=== PATIENT | female | born 1950 | race Caucasian/White ===

== ENCOUNTER 2022-05-01 23:16 | Emergency (ER) | payer MEDICARE, SELFPAY ==
--- NOTE | ~2022-05-01 | CT_ITS ---
EXAMINATION: CTA chest PE protocol DATE: 05/02/2022 05:57 INDICATION: Shortness of breath, elevated d-dimer TECHNIQUE: Computed tomography angiography (CTA) of the chest was performed with 200 CC Omnipaque 350 intravenous contrast timed to evaluate the pulmonary arteries. Coronal maximum intensity projection 3D-reconstructions were created by the technologist. Automated exposure control and iterative reconst ruction technique were employed. Exam dose: 446.48 mGy-cm total exam DLP. COMPARISON: None. FINDINGS: There is diagnostic contrast enhancement of the pulmonary arteries on the second set of shannon ges following repeat injection of contrast material. There is no CT evidence of pulmonary embolism. No thoracic aortic aneurysm or dissection. Normal heart size. No pericardial or pleural effusion. No hilar or mediastinal mass lesion or lymphadenopathy. Laparoscopic gastric band is noted. Status post lower anterior cervical spine surgical fusion. No suspicious osteolytic or osteoblastic lesions. IMPRESSION: No evidence of pulmonary embolism Reviewed, dictated and finalized at [facility]. Reviewed, dictated and finalized at [facility].
--- NOTE | ~2022-05-01 | XR_ITS ---
XR chest 2V DATE: 05/02/2022 01:24 INDICATION: Shortness of breath and cough for 3 days TECHNIQUE: PA and lateral views COMPARISON: None FINDINGS: Normal heart size. No hilar or mediastinal enlargement. No pulmonary infiltrate or consolid ation, pleural effusion or pulmonary vascular congestion or pneumothorax. Laparoscopic gastric band is noted. Status post lower anterior cervical spine surgical fusion. IMPRESSION: No active cardiopulmonary disease Reviewed, dictated and finalized at [facility].
--- NOTE | 2022-05-01 23:19 | ECG_ITS ---
Measurements Intervals [place] Rate: 90 P: 32 [place]: 132 QRS: 22 QRSD: 86 T: 29 QT: 372 QTc: 455 Interpretive Statements SINUS RHYTHM LOW QRS VOLTAGE IN PRECORDIAL LEADS NONSPECIFIC T-WAVE ABNORMALITY- ANT/INF LEADS BASELINE ARTIFACT- I, II, III, V3 BORDERLINE ECG NO PREVIOUS ECG AVAILABLE FOR COMPARISON Electronically Signed On 05-02-2022 7:33:29 CDT by Yohannes Mcrae D.O.
[2022-05-01 23:33] VITALS: BP 115/56; PULSE 91; RESP 20; TEMP 36.8; O2SAT 97
[2022-05-01 23:34] LABS: Basophils Percent Auto 0.5 % (0.2-1.2); Eosinophils Absolute Auto 0.2 K/mm3 (0-0.3); Eosinophils Percent Auto 2.9 % (0-4.4); Hemoglobin 12.6 g/dL (12.0-15.0); Immature Granulocyte Absolute 0.04 K/mm3 (0.00-0.031); Immature Granulocyte Percent A 0.5 % (0-0.5); Lymphocytes Absolute Auto 1.36 K/mm3 (0.9-3.2); Lymphocytes Percent Auto 17.4 % (18.3-44.2); Mean Corpuscular HGB Conc 32.3 g/dl (32-36); Mean Corpuscular Hemoglobin 30.7 pg (26-34); Mean Corpuscular Volume 94.9 fl (80-100); Mean Platelet Volume 9.1 fl (7.4-10.4); Monocytes Absolute Auto 1.1 K/mm3 (0.1-0.6); Monocytes Percent Auto 13.5 % (2.6-8.5); Neutrophils Absolute Auto 5.1 K/mm3 (1.3-6.7); Neutrophils Percent Auto 65.2 % (45.5-73.1); Platelet Count Result 286 k/mm3 (150-375); Red Blood Count 4.11 M/mm3 (4.2-5.4); Red Cell Distribution Width 13.2 % (11.5-14.5); White Blood Count 7.8 K/mm3 (4.5-10.0)
[2022-05-01 23:45] LABS: Alanine Aminotransferase 57 U/L (6-35); Albumin Level 3.9 g/dL (3.5-5.1); Alkaline Phosphatase 116 U/L (38-126); Anion Gap 13 mmol/L (8-16); Aspartate Amino Transferase 88 U/L (14-36); Bilirubin,Total 0.1 mg/dL (0.2-1.3); Blood Urea Nitrogen 16 mg/dL (7-17); Calcium 8.2 mg/dL (8.4-10.2); Carbon Dioxide 31 mmol/L (22-30); Chloride 96 mmol/L (98-107); Estimated CRCL calculation 39 ml/min; Estimated Glomerular Filt Rate 55; Glucose 90 mg/dL (65-110); Potassium 3.3 mmol/L (3.4-5.0); Sodium 140 mmol/L (137-145)
[2022-05-02] VITALS (14 sets, daily range): BP systolic 110–136; BP diastolic 54–72; PULSE 83–92; RESP 18; O2SAT 93–97
--- NOTE | 2022-05-02 02:23 | ED.SOB ---
HPI - SOB/Dyspnea General Chief Complaint: Shortness of Breath/Dyspnea <Ashleigh Villarreal MD - Last Filed: 05/02/22 07:50> Stated Complaint: SOB <Ashleigh Villarreal MD - Last Filed: 05/02/22 07:50> Time Seen by Provider: 05/02/22 02:12 <Ashleigh Villarreal MD - Last Filed: 05/02/22 07:50> Source: patient and RN notes reviewed <Ashleigh Villarreal MD - Last Filed: 05/02/22 07:50> Mode of arrival: ambulatory <Ashleigh Villarreal MD - Last Filed: 05/02/22 07:50> Limitations: no limitations <Ashleigh Villarreal MD - Last Filed: 05/02/22 07:50> History of Present Illness HPI Narrative: This is a 71 year old female with history of COPD who presents for evaluation of sob and worsening cough. She was diagnosed with covid 10 days ago, and she developed worsening cough 2 days ago. She reports she is tired from cough. She also reports shortness of breath. She reports her chest is sore from coughing but otherwise she does not have chest pain. She has chronic left foot swelling due to having gout. She has inhalers for her COPD but she does not use them. She took nyquil tonight without relief. She denies fever, chills , nasal drainage, nausea or vomiting. <Ashleigh Villarreal MD - Last Filed: 05/02/22 07:50> MD elicited complaint: shortness of breath and cough <Ashleigh Villarreal MD - Last Filed: 05/02/22 07:50> Pertinent past history: COPD <Ashleigh Villarreal MD - Last Filed: 05/02/22 07:50> Related Data Allergies/Adverse Reactions: Allergies Allergy/AdvReac Type Severity Reaction Status Date / Time NO KNOWN DRUG ALLERGIES Allergy Y Uncoded 12/19/02 15:45 (Class Allergy) <Ashleigh Villarreal MD - Last Filed: 05/02/22 07:50> Review of Systems Review of Systems: All systems reviewed & are unremarkable except as noted in HPI and below <Ashleigh Villarreal MD - Last Filed: 05/02/22 07:50> Constitutional: Constitutional: Denies chills, Reports fatigue and Denies fever(s) <Ashleigh Villarreal MD - Last Filed: 05/02/22 07:50> Cardiovascular: Cardiovascular: Denies rapid heart rate <Ashleigh Villarreal MD - Last Filed: 05/02/22 07:50> Respiratory: Respiratory: Reports chest congestion, Reports cough and Reports dyspnea <Ashleigh Villarreal MD - Last Filed: 05/02/22 07:50> Gastrointestinal: Gastrointestinal: Reports abdominal pain, Denies nausea and Denies vomiting <Ashleigh Villarreal MD - Last Filed: 05/02/22 07:50> PMFSH Past Medical History Medical History: Medical History (Updated 05/02/22 @ 07:50 by Ashleigh Villarreal MD) COPD (chronic obstructive pulmonary disease) Hypertension <Ashleigh Villarreal MD - Last Filed: 05/02/22 07:50> Exam Const: General: alert <Ashleigh Villarreal MD - Last Filed: 05/02/22 07:50> Nutritional Appearance: well nourished <Ashleigh Villarreal MD - Last Filed: 05/02/22 07:50> Orientation/consciousness: patient oriented x3 <Ashleigh Villarreal MD - Last Filed: 05/02/22 07:50> Limitations: no limitations <Ashleigh Villarreal MD - Last Filed: 05/02/22 07:50> HENMT: Head: normal to inspection <Ashleigh Villarreal MD - Last Filed: 05/02/22 07:50> Eyes: EOM: EOMs intact bilaterally <Ashleigh Villarreal MD - Last Filed: 05/02/22 07:50> Resp: Effort & Inspection: normal respiratory effort <Ashleigh Villarreal MD - Last Filed: 05/02/22 07:50> Auscultation: clear to auscultation bilaterally <Ashleigh Villarreal MD - Last Filed: 05/02/22 07:50> Cardio: Rate: regular rate <Ashleigh Villarreal MD - Last Filed: 05/02/22 07:50> Rhythm: regular rhythm <Ashleigh Villarreal MD - Last Filed: 05/02/22 07:50> Heart sounds: no murmurs <Ashleigh Villarreal MD - Last Filed: 05/02/22 07:50> GI: GI Palp: Yes Soft to palpation, No Tenderness to palpation present (GI), No Guarding due to palpation present (GI) and No Rigid due to palpation <Ashleigh Villarreal MD - Last Filed: 05/02/22 07:50> Auscultation: normal bowel sounds <Ashleigh Villarreal MD - Last Filed: 05/02/22 07:50
[2022-05-02] MEDS: POTASSIUM CHLORIDE 20 MEQ TABLET 40 MEQ PO (02:31)
[2022-05-02] MEDS: BENZONATATE 100 MG CAPSULE 200 MG PO (02:32)
[2022-05-02 03:50] LABS: D Dimer 0.65 ug/mL (<0.48)
== END 2022-05-02 09:12 | disposition home or self-care (01) ==
PROVIDERS: Emergency Provider General Practice; PCP Family Medicine
DX: U07.1 COVID-19 (principal); J44.9 Chronic obstructive pulmonary disease, unspecified; I10 Essential (primary) hypertension
CPT/HCPCS: 36415; 71046; 71275; 80053; 85025; 85380; 93005; 99284; A9270; Q9967

== ENCOUNTER 2023-02-10 07:12 | Emergency (ER) | payer MEDICARE, SELFPAY ==
[2023-02-10] VITALS (14 sets, daily range): BP systolic 120–159; BP diastolic 65–82; PULSE 58–72; RESP 12–19; TEMP 36.7–36.8; O2SAT 93–100
--- NOTE | ~2023-02-10 | XR_ITS ---
EXAMINATION: XR chest 2V DATE: 02/10/2023 07:53 INDICATION: Dizziness. Nausea. TECHNIQUE: Frontal and lateral views of the chest were obtained. COMPARISON: None. FINDINGS: There is mild elevation of right hemidiaphragm. A calcified left lung nodule and calcified left hilar lymph nodes are consistent with old granulomatous disease. No pneumonia, pleural effusion, or pneumothorax. The heart size is normal. There are changes of anterior fusion procedure in cervica l spine. There is a lap band at the proximal stomach with normal phi angle. There is mild chronic ant erior wedging of 2 midthoracic vertebral bodies. IMPRESSION: 1. Mild elevation of right hemidiaphragm. Reviewed, dictated and finalized at [facility].
--- NOTE | 2023-02-10 07:20 | ECG_ITS ---
Measurements Intervals [place] Rate: 61 P: -8 NE: 153 QRS: 44 QRSD: 90 T: 51 QT: 431 QTc: 437 Interpretive Statements SINUS RHYTHM NO PREVIOUS ECG AVAILABLE FOR COMPARISON Electronically Signed On 02-10-2023 15:22:03 CDT by Abhi Bailey M.D.
[2023-02-10 07:41] LABS: Basophils Percent Auto 0.3 % (0.2-1.2); Eosinophils Absolute Auto 0.2 K/mm3 (0-0.3); Eosinophils Percent Auto 2.8 % (0-4.4); Hematocrit 35.2 % (37.0-47.0); Immature Granulocyte Absolute 0.02 K/mm3 (0.00-0.031); Immature Granulocyte Percent A 0.3 % (0-0.5); Lymphocytes Absolute Auto 1.54 K/mm3 (0.9-3.2); Lymphocytes Percent Auto 20.8 % (18.3-44.2); Mean Corpuscular HGB Conc 34.1 g/dl (32-36); Mean Corpuscular Hemoglobin 31.3 pg (26-34); Mean Corpuscular Volume 91.7 fl (80-100); Mean Platelet Volume 9.1 fl (7.4-10.4); Monocytes Absolute Auto 0.7 K/mm3 (0.1-0.6); Monocytes Percent Auto 9.2 % (2.6-8.5); Neutrophils Absolute Auto 4.9 K/mm3 (1.3-6.7); Neutrophils Percent Auto 66.6 % (45.5-73.1); Platelet Count Result 240 k/mm3 (150-375); Red Blood Count 3.84 M/mm3 (4.2-5.4); Red Cell Distribution Width 11.9 % (11.5-14.5); White Blood Count 7.4 K/mm3 (4.5-10.0)
[2023-02-10 07:55] LABS: Alanine Aminotransferase 25 U/L (6-35); Albumin Level 3.9 g/dL (3.5-5.1); Alkaline Phosphatase 112 U/L (38-126); Anion Gap 7 mmol/L (8-16); Aspartate Amino Transferase 28 U/L (14-36); Bilirubin,Total 0.5 mg/dL (0.2-1.3); Blood Urea Nitrogen 13 mg/dL (7-17); Calcium 8.2 mg/dL (8.4-10.2); Carbon Dioxide 27 mmol/L (22-30); Chloride 94 mmol/L (98-107); Estimated Glomerular Filt Rate > 60; Glucose 105 mg/dL (65-110); Potassium 3.3 mmol/L (3.4-5.0); Sodium 128 mmol/L (137-145)
--- NOTE | 2023-02-10 07:56 | ED.GENADULT ---
HPI - General Adult General Chief complaint: Dizziness Stated complaint: Nausea vomiting Time Seen by Provider: 02/10/23 07:17 History of Present Illness HPI narrative: Patient is a 72-year-old female who presents ER with nausea and vomiting. Ongoing for 3 days. Also associated with diarrhea. No blood. Began having cramping of her arms and legs and lightheadedness today when standing so she called EMS. No fevers or chills or sweats. No known sick contacts. She is found no alleviating factors. Related Data Allergies Allergy/AdvReac Type Severity Reaction Status Date / Time oxaprozin [From Daypro] Allergy Rash Verified 02/10/23 11:59 NO KNOWN DRUG ALLERGIES Allergy Y Uncoded 02/10/23 11:59 (Class Allergy) Review of Systems Review of Systems: All systems reviewed & are unremarkable except as noted in HPI and below Constitutional: Constitutional: Denies chills, Reports fatigue and Denies fever(s) ENT: Denies nasal congestion and Denies sore throat Cardiovascular: Cardiovascular: Denies chest pain, Denies rapid heart rate and Denies radiating jaw, neck or arm pain Respiratory: Respiratory: Denies cough and Denies dyspnea Gastrointestinal: Gastrointestinal: Denies abdominal pain, Reports diarrhea, Reports nausea and Reports vomiting Genitourinary: Genitourinary: Denies nocturia and Denies dysuria PMFSH Past Medical History Medical History (Updated 02/10/23 @ 14:10 by Allen Garcia MD) Atrial fibrillation COPD (chronic obstructive pulmonary disease) Hypertension Surgical History Surgical History (Updated 02/10/23 @ 14:10 by Allen Garcia MD) H/O neck surgery History of back surgery Exam Narrative: GENERAL: Well-appearing, well-nourished, and in no acute distress. HEAD: Normocephalic, atraumatic. EYES: PERRL and EOMI. ENT: Mucous membranes moist. CHEST: Clear to auscultation. No respiratory distress. HEART: Regular rate and rhythm. Normal peripheral pulses. ABDOMEN: Soft, nontender, nondistended. EXTREMITIES: Normal range of motion. No edema. SKIN: Warm, dry, no rash. NEURO: Alert and oriented x3. PSYCH: Normal mood and affect. Course Course Emergency Course: Patient resting comfortably and feels much improved after receiving IV fluid and antiemetics. Feels comfortable discharge home. Vital Signs Vital signs: Vital Signs Temperature 98.3 F 02/10/23 07:18 Pulse Rate 69 02/10/23 07:18 Respiratory Rate 16 02/10/23 07:18 Blood Pressure 143/82 H 02/10/23 07:18 Pulse Oximetry 98 02/10/23 07:18 Temperature 98.0 F 02/10/23 11:04 Pulse Rate 60 02/10/23 10:30 Respiratory Rate 16 02/10/23 10:30 Blood Pressure 131/70 02/10/23 10:30 Pulse Oximetry 98 02/10/23 10:30 Medical Decision Making Vital Signs Vital Signs: Vital Signs Temperature 98.3 F 02/10/23 07:18 Pulse Rate 69 02/10/23 07:18 Respiratory Rate 16 02/10/23 07:18 Blood Pressure 143/82 H 02/10/23 07:18 Pulse Oximetry 98 02/10/23 07:18 Temperature 98.0 F 02/10/23 11:04 Pulse Rate 60 02/10/23 10:30 Respiratory Rate 16 02/10/23 10:30 Blood Pressure 131/70 02/10/23 10:30 Pulse Oximetry 98 02/10/23 10:30 Lab Data 02/10/23 07:36 02/10/23 07:36 Labs: Lab Results 02/10/23 Range/Units 07:36 WBC 7.4 (4.5-10.0) K/mm3 RBC 3.84 L (4.2-5.4) M/mm3 Hgb 12.0 (12.0-15.0) g/dL Hct 35.2 L (37.0-47.0) % MCV 91.7 (80-100) fl MCH 31.3 (26-34) pg MCHC 34.1 (32-36) g/dl RDW 11.9 (11.5-14.5) % Plt Count 240 (150-375) k/mm3 MPV 9.1 (7.4-10.4) fl Immature Gran % (Auto) 0.3 (0-0.5) % Neut % (Auto) 66.6 (45.5-73.1) % Lymph % (Auto) 20.8 (18.3-44.2) % [place] % (Auto) 9.2 H (2.6-8.5) % Eos % (Auto) 2.8 (0-4.4) % Baso % (Auto) 0.3 (0.2-1.2) % Lymph # (Auto) 1.54 (0.9-3.2) K/mm3 [place] # (Auto) 0.7 H (0.1-0.6) K/mm3 Eos # (Auto) 0.2 (0-0.3) K/mm3 Baso # (Auto) 0
[2023-02-10] MEDS: Please add drug allergy info to patient profile. 1 EACH XX (08:03)
[2023-02-10] MEDS: ONDANSETRON INJ 4 MG/2 ML VIAL IV PUSH (08:03)
[2023-02-10] MEDS: SODIUM CHLORIDE 0.9% IV 1,000 ML 999 ML IV CONT (08:03)
[2023-02-10 08:32] LABS: Creatine Kinase 193 U/L (30-135); Lipase 78 U/L (23-300)
== END 2023-02-10 11:06 | disposition home or self-care (01) ==
PROVIDERS: Emergency Provider Emergency Medicine
DX: R11.2 Nausea with vomiting, unspecified (principal); E86.0 Dehydration; I48.91 Unspecified atrial fibrillation; I10 Essential (primary) hypertension; J44.9 Chronic obstructive pulmonary disease, unspecified
CPT/HCPCS: 36415; 71046; 80053; 82550; 83690; 85025; 93005; 96361; 96374; 99284; J2405; J7030

== ENCOUNTER 2024-04-13 19:17 | Emergency (ER) | payer MEDICARE, SELFPAY ==
--- NOTE | ~2024-04-13 | XR_ITS ---
EXAMINATION: XR foot LT min 3V DATE: 04/13/2024 19:32 INDICATION: Left foot pain. Fall. TECHNIQUE: 4 views of left foot were obtained. COMPARISON: None. FINDINGS: There is moderate hallux valgus. No fracture. There is severe osteoarthritis of first metat arsophalangeal joint, second tarsometatarsal joint, and third distal interphalangeal joint. There is mild to moderate osteoarthritis of some of the midfoot joints and interphalangeal joints. There are e nthesophytes at the posterior and plantar aspects of calcaneal tuberosity. IMPRESSION: 1. Polyarticular osteoarthritis. 2. Moderate hallux valgus. Reviewed, dictated and finalized at location A.
[2024-04-13 19:20] VITALS: BP 157/99; PULSE 107; RESP 14; TEMP 36.3; O2SAT 99
--- NOTE | 2024-04-13 20:36 | ED.LOWEXIN ---
HPI - Extremity Injury (Lower) General Chief Complaint: Extremity Injury, Lower Stated Complaint: foot injury Time Seen by Provider: 04/13/24 19:57 History of Present Illness HPI Narrative: 73-year-old female presenting with foot pain. States that several days ago she stepped in a hole and twisted her left foot. States that she has had pain along the lateral aspect since then despite using Tylenol. No further injuries or complaints. Related Data Allergies Allergy/AdvReac Type Severity Reaction Status Date / Time oxaprozin [From Daypro] Allergy Rash Verified 04/13/24 20:37 Review of Systems Review of Systems: All systems reviewed & are unremarkable except as noted in HPI and below PMFSH Past Medical History Medical History Atrial fibrillation COPD (chronic obstructive pulmonary disease) Hypertension Surgical History Surgical History H/O neck surgery History of back surgery Exam Narrative: GENERAL: Well-appearing, in no acute distress HEAD: Normocephalic, atraumatic. EYES: PERRLA and EOMI. ENT: Grossly unremarkable NECK: Supple. CHEST: No respiratory distress. HEART: Regular rate and rhythm EXTREMITIES: Normal range of motion. mild edema and erythema lateral aspect of left foot at base of 5th metatarsal, tender with palpation; no tenderness of either malleoli SKIN: Warm, dry, no rash. NEURO: Alert and oriented x3. PSYCH: Normal mood and affect. Course Vital Signs Vital signs: Vital Signs Temperature 97.4 F L 04/13/24 19:20 Pulse Rate 107 H 04/13/24 19:20 Respiratory Rate 14 04/13/24 19:20 Blood Pressure 157/99 H 04/13/24 19:20 Pulse Oximetry 99 04/13/24 19:20 Oxygen Delivery Room Air 04/13/24 19:20 Temperature 97.4 F L 04/13/24 19:20 Pulse Rate 107 H 04/13/24 19:20 Respiratory Rate 14 04/13/24 19:20 Blood Pressure 157/99 H 04/13/24 19:20 Pulse Oximetry 99 04/13/24 19:20 Oxygen Delivery Room Air 04/13/24 19:20 MDM - Extremity Injury (Lower) MDM Narrative Medical decision making narrative: 73-year-old female presenting with left foot pain. Vitals stable. Exam remarkable for the above. X-rays reveal no acute fractures. Discussed appropriate supportive care and follow-up. Appropriate return precautions given. She is agreeable this plan. Discharged in stable condition. Differential Diagnosis Differential diagnosis: Likely ankle sprain and strain, ankle fracture and other (Foot fracture, foot contusion) Medical Records Attestation: I reviewed the patient's medical records. Imaging Data Radiologist's impression: ITS Impressions Foot X-Ray 04/13/24 19:45 IMPRESSION: 1. Polyarticular osteoarthritis. 2. Moderate hallux valgus. Critical Care Time Critical Care Time Critical Care Time: No Discharge Plan Discharge Clinical Impression: Sprain of left foot Patient Disposition: Home, Self-Care Condition: Stable Instructions: Antibiotic Form, Foot Sprain (ED) Additional Instructions: The x-ray shows no broken bones. Please use Tylenol and ibuprofen for pain control as discussed. Please follow-up closely with your PCP. If your symptoms worsen or other concerning symptoms arise, please return to the ER. Prescriptions: New ibuprofen 800 mg tablet 800 mg PO TID PRN (Reason: pain) Qty: 20 0RF No Action benzonatate 200 mg capsule 200 mg PO TID PRN (Reason: cough) Qty: 10 0RF Follow-up/Referrals: Sung Ybarra MD [Physician] -
[2024-04-13] MEDS: KETOROLAC 30 MG/ML VIAL (*BKC) IM (20:50)
[2024-04-13 20:55] VITALS: BP 156/89; PULSE 99; RESP 20; O2SAT 100
== END 2024-04-13 20:56 | disposition home or self-care (01) ==
PROVIDERS: Emergency Provider Emergency Medicine; PCP Family Medicine
DX: S93.602A Unspecified sprain of left foot, initial encounter (principal); I48.91 Unspecified atrial fibrillation; I10 Essential (primary) hypertension; J44.9 Chronic obstructive pulmonary disease, unspecified; M19.072 Primary osteoarthritis, left ankle and foot; M20.12 Hallux valgus (acquired), left foot; X50.9XXA Other and unspecified overexertion or strenuous movements or postures, initial encounter
CPT/HCPCS: 73630; 96372; 99283; J1885

== ENCOUNTER 2025-04-15 11:09 | Emergency (ER) | payer MEDICARE, MEDICAID, SELFPAY ==
--- OUTSIDE RECORDS SUMMARY | 2024-07-10 05:20 | XMS_ITS ---
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 Name Role Phone Sung Ybarra Primary Care Provider [phone] Allergies No Known Allergies REASON FOR VISIT r/s from 07/04--f u Medications Medication SIG (Take, Route, Frequency, Duration) Notes Start Date End Date Status Folic Acid 400 MCG 1 tablet Orally Once a day Active Aspirin Low Dose 81 mg TAKE 1 TABLET BY MOUTH DAILY; Duration: 30 Active Simvastatin 40 mg TAKE ONE TABLET BY M OUTH DAILY AT 5PM EVERY EVENING; Duration: 30 Active Sinemet 25-100 MG 1 tab Orally at bedtime Active Topamax 25 MG 2 tablets Orally twi ce daily Active Furosemide 40 MG 1 tablet Orally Once a day Active Spironolactone 50 MG 1 tablet Orally Onc e a day; Duration: 90 days Active Allergy Relief Cetirizine 10 mg TAKE 1 TABLET BY MOUTH DAILY; Duration: 30 Active SUMAtriptan Active Montelukast Sodium 10 mg TAKE 1 TABLET B Y MOUTH DAILY; Duration: 30 Active Naproxen Unknown Potassium Chloride ER 20 MEQ 1 tablet with food Orally Once a day; Duration: 30 days As needed WITH EACH DOSE OF FUROSEMIDE Active Carbidopa-Levodopa ER 25-100 MG 1 tablet as needed Orally AT BEDTIME Active Symbicort 160-4.5 MCG/ACT INHALE 2 PUFFS BY MOUTH TWICE A DAY; Duration: 90 Active Ranolazine ER 500 MG 1 tablet Orally Twi ce a day Active Spiriva HandiHaler 18 MCG 1 capsule by i nhaling the contents of the capsule using the HandiHaler device Inhalation Once a day Active Ditropan XL Active Pantoprazole Sodium 40 MG 1 tablet Orall y Once a day Active Ferrous Sulfate 324 MG 1 tablet Orally T hree times a Week Active Isosorbide Mononitrate ER 30 MG 1 tablet in the morning Orally Once a day Active Colchicine Active Promethazine HCl 25 MG 1 tablet as neede d Orally every 12 hrs Active oxyBUTYnin Chloride ER 10 mg TAKE ONE TABLET BY MOUTH DAILY AT 9AM; Duration: 30 Active Furosemide 40 MG 1 tablet Orally Once a day Active Acetaminophen 500 MG two tablets as need ed for pain (maximum of 6 tablets in 24 hours) Orally every 6 hrs Active Promethazine HCl 25 MG 1 tablet as needed Orally every 12 hrs As needed nausea Active Acetaminophen 500 MG two tablets as need ed for pain (maximum of 6 tablets in 24 hours) Orally every 6 hrs Active oxyBUTYnin Chloride ER 10 mg TAKE ONE TABLET BY MOUTH DAILY AT 9AM; Duration: 30 Active Carvedilol 6.25 MG 1 tablet with food O rally Twice a day; Duration: 30 days Active Trulicity 3 MG/0.5ML INJECT 3MG SUBCUTAN EOUSLY EVERY WEEK; Duration: 28 days Active Gabapentin 600 mg TAKE ONE TABLET BY M OUTH TWICE DAILY @9AM-5PM 30 DAYS; Duration: 30 Active DULoxetine HCl 60 MG 1 capsule Orally TW ICE DAILY Active Social History Tobacco Use: Social History Observation Description Date Details (start date - stop date) Never Smoker NA - NA Sex Assigned At : Social History Observation Description Sex Assigned At Female Dont use, Tobacco Use/Smoking Question Answer Notes Are you a nonsmoker Tobacco Control (Standard) Question Answer Notes Tobacco use: Nonsmoker Encounters Encounter Location Date Provider Diagnosis [address] [address] 07/10/2024 Sung Ybarra Plan Of Treatment No Information Progress Notes * Renate CORDONDOB:[birth year] (74 yo F)Acc No.[id number]:07/10/2024 UNLOCKED PROGRESS NOTE DNS Patient: Renate BRIONES Provider: Aquilino Ybarra :1950 A ge:74 Y S ex:Female Date:07/10/2024 Address:[address] [place] [address] 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 R/s from 07/04--f u. * HPI: I nterim History: Emergency room visit N o. Was hospitalized N o. D epression Screening: PHQ-9 L ittle interest or pleasure in doing things?Nearly every day F eeling down, depressed, or hopeless N ot at all T rouble falling or staying asleep, or sleeping too much N ot at all F eeling tired or having little energy N ot at all P oor appetite or overeating N ot at all F eeling bad about yourself or that you are a failure, or have let yourself or your family down N ot at all T rouble concentrating on things, such as reading the newspaper or watching television N ot at all M oving or speaking so slowly that other people could have noticed; or the opposite, being so fidgety or restless that you have been moving around a lot more than usual N ot at all T houghts that you would be better off or of hurting yourself in some way N ot at all T otal Score 3 I nterpretation M inimal Depression S creening: [place] Suicide Severity Rating Scale (LF) D o you want to initiate with S creener form 1 . Wish to be : Have you wished you were or wished you could go to sleep and not wake up? N o 2 . Suicidal Thoughts: Have you actually had any thoughts of killing yourself? N o 6 . Suicide Behavior Question: Have you ever done anything,started to do anything, or prepared to end your life? N o I nterpretation: L ow Risk C SSRS Interpretation and Follow Up Plan: CSSRS Interpretation and Follow Up Plan C SSRS Screen documented using SF Y es R isk Disposition from L ow - No Follow Up Plan Required F ollow Up Plan N o Follow Up Plan required at this time. * Medical History: I rritable bowel syndrome, Restless leg syndrome. * Surgical History: b ack surgery , fracture foot . * Hospitalization/Major Diagno stic Procedure: D enies Past Hospitalization. * Family History: S on(s): . S pouse: alive. 2 son(s) , 2 daughter(s) - healthy. . * Social History: P rimary Social History: L iving Arrangement L iving Arrangement: I ndependent Living I s this a supportive environment? Y es T obacco Use: D ont use, Tobacco Use/Smoking A re you a [place] Tobacco Control (Standard) T obacco use: [place] M iscellaneous: M ethod of learning P referred method of learning: D iscussion * Medications: T aking Colchicine , Taking Ditropan XL , Taking Spiriva HandiHaler 18 MCG Capsule 1 capsule by inhaling the contents of the capsule using the HandiHaler device Inhalation Once a day , Taking Ferrous Sulfate 324 MG Tablet Delayed Release 1 tablet Orally Three times a Week , Taking Pantoprazole Sodium 40 MG Tablet Delayed Release 1 tablet Orally Once a day , Taking Isosorbide Mononitrate ER 30 MG Tablet Extended Release 24 Hour 1 tablet in the morning Orally Once a day , Taking Ranolazine ER 500 MG Tablet Extended Release 12 Hour 1 tablet Orally Twice a day , Taking Potassium Chloride ER 20 MEQ Tablet Extended Release 1 tablet with food Orally Once a day As needed WITH EACH DOSE OF FUROSEMIDE, Taking Symbicort 160-4.5 MCG/ACT Aerosol INHALE 2 PUFFS BY MOUTH TWICE A DAY , Taking Carbidopa-Levodopa ER 25-100 MG Tablet Extended Release 1 tablet as needed Orally AT BEDTIME , Taking Furosemide 40 MG Tablet 1 tablet Orally Once a day , Taking Allergy Relief Cetirizine 10 mg Tablet TAKE 1 TABLET BY MOUTH DAILY , Taking Spironolactone 50 MG Tablet 1 tablet Orally Once a day , Taking Montelukast Sodium 10 mg Tablet TAKE 1 TABLET BY MOUTH DAILY , Taking SUMAtriptan , Taking Topamax 25 MG Tablet 2 tablets Orally twice daily , Taking Sinemet 25-100 MG Tablet 1 tab Orally at bedtime , Taking Aspirin Low Dose 81 mg Tablet Delayed Release TAKE 1 TABLET BY MOUTH DAILY , Taking Folic Acid 400 MCG Tablet 1 tablet Orally Once a day , Taking Simvastatin 40 mg Tablet TAKE ONE TABLET BY MOUTH DAILY AT 5PM EVERY EVENING , Taking DULoxetine HCl 60 MG Capsule Delayed Release Particles 1 capsule Orally TWICE DAILY , Taking Gabapentin 600 mg Tablet TAKE ONE TABLET BY MOUTH TWICE DAILY @9AM-5PM 30 DAYS , Taking Acetaminophen 500 MG Tablet two tablets as needed for pain (maximum of 6 tablets in 24 hours) Orally every 6 hrs , Taking Promethazine HCl 25 MG Tablet 1 tablet as needed Orally every 12 hrs As needed nausea, Taking Carvedilol 6.25 MG Tablet 1 tablet with food Orally Twice a day , Taking oxyBUTYnin Chloride ER 10 mg Tablet Extended Release 24 Hour TAKE ONE TABLET BY MOUTH DAILY AT 9AM , Taking Trulicity 3 MG/0.5ML Solution Auto-injector INJECT 3MG SUBCUTANEOUSLY EVERY WEEK , Taking Acetaminophen 500 MG Tablet two tablets as needed for pain (maximum of 6 tablets in 24 hours) Orally every 6 hrs , Taking Furosemide 40 MG Tablet 1 tablet Orally Once a day , Taking oxyBUTYnin Chloride ER 10 mg Tablet Extended Release 24 Hour TAKE ONE TABLET BY MOUTH DAILY AT 9AM , Taking Promethazine HCl 25 MG Tablet 1 tablet as needed Orally every 12 hrs , Unknown Naproxen * Allergies: N .K.D.A. Objective: * Vitals: Assessment: Plan: * Treatment: * Recommended Wellness and Pre vention Guidelines: * S tat A huy L ast Done N ext Due A ction Taken N ONCOMPLIANT A lcohol use screening - 0 07/10/2024 - - N ONCOMPLIANT A llergy List Verification - 0 07/10/2024 - - N ONCOMPLIANT B reast cancer screening 0 01/20/2024 0 07/10/2024 - - N ONCOMPLIANT C olorectal cancer screening - 0 07/10/2024 - - N ONCOMPLIANT I nfluenza vaccine (over 50) 0 10/07/2023 0 07/10/2024 - - N ONCOMPLIANT L DL control (high risk) 0 09/30/2023 0 07/10/2024 - - N ONCOMPLIANT P neumococcal vaccine - 0 07/10/2024 - - * * Electronic signature of Stephania Ybarra , [id number] on 04/15/2025 at 11:43 AM CDT Sign off status: Pending * Provider: Aquilino Ybarra Date: 0 07/10/2024 Generated for Betito munson/Radha/Bill on: 11:43 AM CDT History and Physical Notes * HPI (History of Present Illness) Category Sub-Category Detail Notes Category Not es Interim History Was hospitalized No Emergency room visit No Depression Screening PHQ-9 Little inte rest or pleasure in doing things: Nearly every day Feeling down, depressed, or hopeless: No t at all Trouble falling or staying asleep, or sl eeping too much: Not at all Feeling tired or having little energy: N ot at all Poor appetite or overeating: Not at all Feeling bad about yourself o r that you are a failure, or have let yourself or your family down: Not at all Trouble concentrating on thi ngs, such as reading the newspaper or watching television: Not at all Moving or speaking so slowly that other people could have noticed; or the opposite, being so fidgety or restless that you have been moving around a lot more than usual: Not at all Thoughts that you would be b gracie off or of hurting yourself in some way: Not at all Total Score: 3 Interpretation: Minimal Depression Screening [place] Suicide Sev erity Rating Scale (LF) Do you want to initiate with: Screener form 1. Wish to be : Have you wished you were or wished you could go to sleep and not wake up?: No 2. Suicidal Thoughts: Have you actually had any thoughts of killing yourself?: No 6. Suicide Behavior Question: Have you ever done anything,started to do anything, or prepared to end your life?: No Interpretation:: Low Risk CSSRS Interpretation and Follow Up Plan CSSRS Interpretation and Follow Up Plan CSSRS Screen documented using SF: Yes Risk Disposition from SF: Low - No Follo w Up Plan Required Follow Up Plan: No Follow Up Plan requir ed at this time.
--- OUTSIDE RECORDS SUMMARY | 2024-07-12 04:40 | XMS_ITS ---
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 Name Role Phone Sung Ybarra Primary Care Provider REASON FOR VISIT follow up Social History Sex Assigned At : Social History Observation Description Sex Assigned At Female Encounters Encounter Location Date Provider Diagnosis [address] [place] [address] 07/12/2024 Sung Ybarra Plan Of Treatment No Information Progress Notes * Renate CORDONDOB:[birth year] (74 yo F)Acc No.[id number]:07/12/2024 UNLOCKED PROGRESS NOTE Progress Notes Patient: Renate BRIONES Provider: Aquilino Ybarra :1950 A ge:74 Y S ex:Female Date:07/12/2024 Address:[address] [place], [place] [id number] Subjective: * Chief Complaints: * 1 . Follow up. * Medical History: Objective: * Vitals: Assessment: Plan: * Treatment: * * Electronic signature of Stephania Ybarra , [id number] on 04/15/2025 at 11:42 AM CDT Sign off status: Pending * Provider: Aquilino Ybarra Date: 0 07/12/2024 Generated for Betito munson/Radha/eTransmitting on: 1 11:42 AM CDT
--- NOTE | ~2025-04-15 | CT_ITS ---
CT HEAD NON-CONTRAST CT C-SPINE Clinical History: syncope Comparison: None Technique: Unenhanced axial images skull base to vertex. Coronal, sagittal reformats. Axial images thoracic inlet to skull base. Sagittal and coronal reformats. CT images acquired with automatic exposure control for dose reduction DLP: 681 mGy-cm Findings: Head: White matter changes, typically chronic microvascular ischemic disease Sulci, ventricles: Unremarkable. No intracerebral hemorrhage. No evidence acute territorial infarct. No mass effect, midline shift, intra-/extra-axial fluid collection. Bony calvarium intact. Visualized paranasal sinuses: Clear. Mastoid air cells: Clear. C-spine: ACDF C4-C7. No acute fracture. Trace grade 1 anterolisthesis C2 on 3, C3 on 4. Vertebral bodies normal height and alignment. Mild degenerative changes. Prevertebral soft tissues within normal limits. Visualized lung apices: Clear. Visualized thyroid: Unremarkable. No enlarged cervical nodes. IMPRESSION: HEAD: 1. No acute intracranial findings. C-SPINE: 1. No acute fracture. Reviewed, dictated and finalized at location R. IMPRESSION: HEAD: 1. No acute intracranial findings. C-SPINE: 1. No acute fracture.
--- NOTE | ~2025-04-15 | XR_ITS ---
Examination: XR chest 1V Clinical History: syncope, shortness of breath Comparison: 02/10/2023 Technique: Portable AP Findings: Heart size normal. Lungs clear. A few calcified granulomata. Chronic elevation right hemidiaphragm. No acute bony abnormality. Gastric lap band. IMPRESSION: 1. No acute cardiopulmonary findings given portable technique. Reviewed, dictated and finalized at location R.
[2025-04-15 11:23] VITALS: BP 134/90; PULSE 87; RESP 17; TEMP 36.6; O2SAT 97
[2025-04-15 11:29] VITALS: BP 134/80; PULSE 75; RESP 17; O2SAT 98
--- NOTE | 2025-04-15 11:38 | ECG_ITS ---
Test Date: 2025-04-15 11:49:48 Measurements Intervals [place] Rate: 71 P: 45 IN: 153 QRS: -3 QRSD: 74 T: 29 QT: 382 QTc: 417 Interpretive Statements SINUS RHYTHM BASELINE ARTIFACT- I, II, III, AVR, AVL, AVF NORMAL ECG No previous ECG available for comparison Electronically Signed On 04-15-2025 13:29:54 CDT by Yohannes Mcrae D.O.
--- OUTSIDE RECORDS SUMMARY | 2025-04-15 11:43 | XMS_ITS | Clinical Summary ---
Author Organization [facility] er Address [address] [place] [address] Care Team Providers Care Claims Service Representative Name Role Phone Humberto Martinez MD Unavailable Sung Ybarra MD Primary Care Provider [phone] Mitchel Ugarte MD Unavailable [phone] Krupa Saunders OT Unavailable Unavailab le Allergies Active Allergy Reactions Criticality Noted Date Comments Iodinated Contrast Media Nausea And Vomi ting,Nausea & Vomiting,Unknown Low 08/31/2014 Misoprostol Rash Medium 02/17/2012 Oxaprozin Rash Medium 02/15/2012 Red Dye Unknown Low 04/15/2021 Medications oxybutynin XL (DITROPAN-XL) 10 mg 24 hr tablet TAKE 1 TABLET BY MOUTH DAILY 30 5 02/24/20 14 Active Additional Information Patient taking differently:10 mgoral Daily, Reported on 10/17/2024 simvastatin (ZOCOR) 40 mg tablet take 1 tablet by oral route every day in the evening 30 0 02/24/20 14 Active Additional Information Patient taking differently:40 mgoral Nightly, Reported on 10/17/2024 cyanocobalamin (Vitamin B-12) 1,000 mcg/mL injectionIndicati ons:Vitamin B12 Deficiency Inject 1 mL (1,000 mcg total) into the muscle as instructed every 30 (thirty) days Active ipratropium-albut rosalva (DUO-NEB) 0.5-2.5 mg/3 mL nebulizer solutionIndicatio ns:Chronic Obstructive Pulmonary Disease with Bronchospasms Take by nebulization every 6 (six) hours as needed for wheezing Active isosorbide mononitrate ER (IMDUR) 30 mg 24 hr tablet Take 1 tablet (30 mg total) by mouth daily Active pantoprazole DR (PROTONIX) 40 mg EC tablet Take 1 tablet (40 mg total) by mouth daily Active aspirin 81 mg enteric coated tablet Take 1 tablet (81 mg total) by mouth daily Active ferrous sulfate 325 mg (65 mg of elemental iron) tabletIndications :Iron Deficiency Anemia Take 1 tablet (325 mg total) by mouth 3 (three) times a week Active potassium chloride ER (potassium chloride ER) 20 mEq CR tablet Take 1 tablet (20 mEq total) by mouth daily Active promethazine (PHENERGAN) 25 mg tablet Take 1 tablet (25 mg total) by mouth 2 (two) times a day as needed for nausea or vomiting Active gabapentin (NEURONTIN) 400 mg capsule Take 1 capsule (400 mg total) by mouth 3 (three) times a day 90 capsule 02/26/20 Active Additional Information Patient taking differently: 800 mgoral4 times daily, Reported on 12/21/2023 Narcan 4 mg/actuation spray,non-aerosol CALL 911. ADMINISTER A SINGLE SPRAY IN ONE NOSTRIL. REPEAT EVERY 3 MINUTES NEEDED IF NO OR MINIMAL RESPONSE 2 each 2 03/12/20 Active dicyclomine (BENTYL) 20 mg tabletIndications :Abdominal Pain with Cramps Take 1 tablet (20 mg total) by mouth 2 (two) times a day 20 tablet 05/24/20 Active Additional Information Patient taking differently:20 mg oral3 times daily, Indications: Abdominal Pain with Cramps, Reported on 12/21/2023 carbidopa-levodop a CR (SINEMET CR) 25-100 mg per CR tabletIndications :Restless Legs Syndrome Take 1 tablet by mouth nightly Active DULoxetine DR (CYMBALTA) 60 mg capsule Take 1 capsule (60 mg total) by mouth 2 (two) times a day Active folic acid (FOLVITE) 400 mcg tablet Take 1 tablet (400 mcg total) by mouth daily Active budesonide-formot Rosalva (SYMBICORT) 160-4.5 mcg/actuation inhalerIndication s:sob Inhale 2 puffs 2 (two) times a day Rinse mouth with water after use. Do not swallow. Active tiotropium (SPIRIVA) 18 mcg per inhalation capsule Place 1 puff (1 capsule total) into inhaler and inhale daily Active ranolazine ER (RANEXA) 500 mg 12 hr tablet Take 1 tablet (500 mg total) by mouth 2 (two) times a day Active nitroglycerin (NITROSTAT) 0.[address] 1 tablet (0.4 mg total) under the tongue every 5 (five) minutes as needed for chest pain Active acetaminophen (TYLENOL) 500 mg tablet Take 1 tablet (500 mg total) by mouth every 6 (six) hours as needed for pain Active benzonatate (TESSALON) 200 mg capsuleIndication s:Cough Take 1 capsule (200 mg total) by mouth 3 (three) times a day as needed for cough 20 capsule 12/28/19 24 Active Additional Information Patient not taking.Reported on 08/29/2024 colchicine (COLCRYS) 0.6 mg tablet Take 1 tablet (0.6 mg total) by mouth 2 (two) times a day for 7 days 14 tablet 12/28/19 24 Active topiramate (TOPAMAX) 25 mg tablet Take 1 tablet (25 mg total) by mouth 2 (two) times a day for 4 days, THEN 2 tablets (50 mg total) 2 (two) times a day. 128 tablet 12/28/19 24 Active Additional Information Patient not taking.Reported on 08/29/2024 SUMAtriptan (IMITREX) 25 mg tabletIndications :Migraine Take 1 tablet (25 mg total) by mouth once as needed for migraine May repeat dose once in 2 hours if no relief. Do not exceed 2 doses in 24 hours. 20 tablet 12/28/19 24 Active gabapentin (NEURONTIN) 400 mg capsuleIndication s:Postherpetic Neuralgia Take 1 capsule (400 mg total) by mouth 3 (three) times a day Active ibuprofen 200 mg tab/cap Take 3 tablet/capsule (600 mg total) by mouth every 6 (six) hours as needed for pain Last took on 08/26/24 Active bisacodyl EC (DULCOLAX EC) 5 mg EC tabletIndications :constipation Take 1 tablet (5 mg total) by mouth daily as needed for constipation 4 tablet 08/30/19 25 Active omeprazole (PriLOSEC) 20 mg capsuleIndication s:Gastroesophagea l reflux disease without esophagitis Take 1 capsule (20 mg total) by mouth 2 (two) times a day 60 capsule 1 08/31/19 25 Active cetirizine (ZyrTEC) 10 mg tablet Take 1 tablet (10 mg total) by mouth daily 30 tablet 09/24/19 25 Active montelukast (SINGULAIR) 10 mg tablet Take 1 tablet (10 mg total) by mouth nightly 30 tablet 09/24/19 25 Active albuterol HFA (PROVENTIL HFA,VENTOLIN HFA,PROAIR HFA) 90 mcg/actuation inhaler Inhale 1 puff every 4 (four) hours as needed for shortness of breath or wheezing Active furosemide (LASIX) 40 mg tablet Take 1 tablet (40 mg total) by mouth as needed (swelling) 10/11/19 22 Active carvediloL (COREG) 6.25 mg tablet Take 1 tablet (6.25 mg total) by mouth every 12 hours 01/24/20 22 Active meloxicam (MOBIC) 15 mg tablet Take 1 tablet (15 mg total) by mouth daily 07/20/19 25 Active spironolactone (ALDACTONE) 50 mg tablet Take 1 tablet (50 mg total) by mouth daily Active Trulicity 3 mg/0.5 mL pen injector Inject 0.5 mL (3 mg total) under the skin once a week 09/27/19 25 Active folic acid (FOLVITE) 1 mg tablet Take 1 tablet (1 mg total) by mouth daily 09/28/19 25 Active gabapentin (NEURONTIN) 600 mg tablet Take 1 tablet (600 mg total) by mouth daily 10/25/19 25 Active nitroglycerin (Nitrostat) 0.[address] 1 tablet (0.4 mg total) under the tongue every 5 (five) minutes as needed Active omeprazole (PriLOSEC) 20 mg capsuleIndication s:Ulcer of esophagus without bleeding Take 1 capsule (20 mg total) by mouth 2 (two) times a day 60 capsule 2 11/01/19 25 Active amoxicillin-clavu lanate (AUGMENTIN) 875-125 mg per tablet Take 1 tablet by mouth every 12 (twelve) hours 20 tablet 11/25/19 25 Active traMADoL (ULTRAM) 50 mg tablet Take 1 tablet (50 mg total) by mouth every 8 (eight) hours as needed for pain 15 tablet 11/25/19 25 Active HYDROcodone-aceta minophen (NORCO) 5-325 mg per tabletIndications :Pain Take 1 tablet by mouth every 6 (six) hours as needed for pain 20 tablet 12/16/19 25 Active loperamide (IMODIUM) 2 mg capsule 02/08/20 25 Active Active Problems Problem Noted Date Diagnosed Date COVID-19 03/14/2025 Dehydration 03/14/2025 Overweight 03/14/2025 Sprain of left foot 03/14/2025 Anemia 12/07/2024 Gout 12/07/2024 Overactive bladder 12/07/2024 Gastric ulcer 10/30/2024 Ulcer of esophagus without bleeding 08/31/2024 Hiatal hernia 08/29/2024 Diarrhea 08/29/2024 Family history of colon cancer in father 025 Acute intractable headache 12/22/2023 Coronary artery disease invo lving [place] coronary artery of [place] heart with angina pectoris 12/21/2023 Panlobular emphysema 12/21/2023 Environmental and seasonal allergies 12/21/2023 Chronic abdominal pain 12/21/2023 Neuropathy 12/21/2023 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 12/21/2023 Urinary tract infection without hematuria, site unspecified 12/20/2023 Congestive heart failure 06/03/2023 Impaired glucose tolerance 06/03/2023 Type 2 diabetes mellitus wit h other diabetic kidney complication 09/10/2022 Chronic kidney disease (CKD) 06/16/2021 Overview (12/07/2024): Imported from [facility] (10-Sep-2022 at 12:14:08 PM) Dyslipidemia 06/16/2021 Overview (12/07/2024): Imported from [facility] (10-Sep-2022 at 12:14:08 PM) Internal derangement of right knee 06/16/2021 PAF (paroxysmal atrial fibrillation) 06/16/2021 Overview (12/07/2024): Imported from [employer] [facility] (10-Sep-2022 at 12:14:08 PM) Pain in right knee 06/16/2021 Spinal stenosis 06/16/2021 Overview (12/07/2024): [facility] (10-Sep-2022 at 12:14:08 PM) Chronic migraine without aur a without status migrainosus, not intractable 02/26/2021 Calcified granuloma of lung 06/12/2020 Overview (12/07/2024): Imported from [employer] [facility] (10-Sep-2022 at 12:14:08 PM) Chronic heart failure with preserved ejection fr action 06/12/2020 Overview (12/07/2024): Imported from [employer] [facility] (10-Sep-2022 at 12:14:08 PM) Chronic obstructive pulmonary disease 02/29/2020 Type 2 diabetes with stage 3 chronic kidney disease GFR 30-59 02/29/2020 Controlled type 2 diabetes m celia with diabetic polyneuropathy, with long-term current use of insulin 02/15/2020 Chronic bilateral low back pain without sciatica 02/15/2020 Assessment & Plan (02/15/2020 11:36 AM CDT): Stable. She follows with pain management. Reviewed my recommendations with history of four hospitalizations in the last 4 years for altered mental status in the setting of chronic opiate use I would formally recommend against chronic opiates for her. She reports understanding and will continue to follow with pain management with prescriptions at their discretion. Advised I would not assume management of narcotic therapy for her. I did however refill her Narcan. Acute kidney injury 02/11/2020 Opiate overdose 02/11/2020 Syncope 02/11/2020 Obesity (BMI 30.0-34.9) 02/16/2019 Irritable bowel syndrome 09/02/2018 Overview (12/07/2024): Imported from [employer] [facility] (10-Sep-2022 at 12:14:08 PM) Vitamin D deficiency 07/11/2018 Overview (12/07/2024): [facility] [employer] (10-Sep-2022 at 12:14:08 PM) Atherosclerosis of both carotid arteries 018 Overview (12/07/2024): Imported from [employer] (10-Sep-2022 at 12:14:08 PM) Folic acid deficiency (non anemic) 05/24/2018 Overview (12/07/2024): Imported from [employer] (10-Sep-2022 at 12:14:08 PM) Vitamin B12 deficiency (non anemic) 05/24/2018 Overview (12/07/2024): Imported from [employer] (10-Sep-2022 at 12:14:08 PM) Hammer toe of right foot 05/04/2018 Overview (05/04/2018): Added automatically from request for surgery [id number] History of colon polyps 04/05/2018 Overview (12/07/2024): Imported from [employer] (10-Sep-2022 at 12:14:08 PM) Chronic venous insufficiency 03/22/2015 Overview (12/07/2024): Imported from [employer] [facility] (10-Sep-2022 at 12:14:08 PM) Asthma 02/23/2014 Overview (10/01/2016): Asthma Edema 02/23/2014 Overview (10/01/2016): Edema Atopic rhinitis 02/23/2014 Overview (10/01/2016): Allergic rhinitis Hyperlipidemia 02/23/2014 Overview (10/01/2016): Hyperlipidemia Palpitations 02/23/2014 Overview (10/01/2016): Palpitations Obstructive sleep apnea syndrome 02/23/2014 Overview (10/01/2016): Obstructive sleep apnea Urinary incontinence 02/23/2014 Overview (10/01/2016): Urinary incontinence Gastroesophageal reflux disease without esophagi tis 02/23/2014 Overview (10/01/2016): GERD Restless leg syndrome 02/23/2014 Overview (10/01/2016): RLS Hypomagnesemia 02/23/2014 Overview (10/01/2016): Hypomagnesemia Cervical spondylosis without myelopathy 02/16/20 12 Overview (12/07/2024): Imported from [facility] (10-Sep-2022 at 12:14:08 PM) Somnolence Hypotension Hyponatremia Nausea and vomiting Polypharmacy Encounters Date Type Department Care Team Description 03/19/2025 9:30 AM CDT Office Visit [facility] [address] [place] [phone] Gilma Guerrero PA Right foot pain (Primary Dx); Hallux valgus of right foot 03/19/2025 9:24 AM CDT - 03/19/2025 11:59 PM CDT Hospital Encounter [facility] [address] [place] [phone] Right foot pain Discharge Disposition: Discharge to home or self care 03/14/2025 1:30 PM CDT Office Visit [facility] [address] [place] [phone] Gilma Guerrero PA Acute right ankle pain (Primary Dx); Sprain of anterior talofibular ligament of right ankle, initial encounter 03/14/2025 12:55 PM CDT - 03/14/2025 11:59 PM CDT Hospital Encounter [facility] [address] [place] [phone] Acute right ankle pain Discharge Disposition: Discharge to home or self care 03/08/2025 Telephone [facility] [address] [place] [phone] Gilma Guerrero PA 03/06/2025 4:21 PM CDT - 03/06/2025 5:27 PM CDT Emergency [facility] [address] [place] [address] Acute right ankle pain (Primary Dx) Discharge Disposition: Discharge to home or self care 02/01/2025 8:43 AM CDT - 02/01/2025 11:59 PM CDT Hospital Encounter [facility] [address] [place] [phone] Cough in adult patient Discharge Disposition: Discharge to home or self care from Last 3 Months Immunizations Immunization Administration Dates Next Due Influenza, Unspecified 03/28/2019(Deferred: Florina ent Refused) Surgical History Surgery Date Site/Laterality Comments TUBAL LIGATION tubal CERVICAL FUSION cervical fusion OTHER SURGICAL HISTORY ORIF bilateral ankles HEMORRHOID SURGERY hemorrhoidectomy LAPAROSCOPIC GASTRIC BANDING BACK SURGERY EYE SURGERY replaced a lense. 2018 [place] FLUORO GUIDED LUMBAR PUNCTURE 12/23/2023 Right COLONOSCOPY UPPER GASTROINTESTINAL ENDOSCOPY Medical History Medical History Date Comments Chronic obstructive pulmonary disease COPD Hypertension A-fib (HCC) 5-[address] episode GERD (gastroesophageal reflux disease) Hyperlipidemia Colon polyp Chronic diarrhea Prediabetes Family History Medical History Relation Name Comments Other Father intracranial an eurysm; Colon cancer Other son Relation Name Status Comments Father Other son Social History Tobacco Use Types Packs/Day Years Used Date Smoking Tobacco: Never Smokeless Tobacco: Never Alcohol Use Standard Drinks/Week Comments No 0 (1 standard drink = 0.6 oz pur e alcohol) OASIS D0700: Social Isolation Answer Da te Recorded Frequency of experiencing loneliness or isolatio n Never 01/26/2024 OASIS A1250: Transportation Answer Date Recorded Lack of Transportation (Medical) No 01/26/2024 Lack of Transportation (Non-Medical) No 01/26/2024 Patient Unable or Declines to Respond No 01/26/2024 OASIS B1300: Health Literacy Answer Tylor e Recorded Frequency of needing help to read materials from doctor or pharmacy Never 01/26/2024 [facility] Utilities Answer Date Recorded In the past 12 months has th e electric, gas, oil, or water company threatened to shut off services in your home? Yes 12/21/2023 Social Connection and Isolation Panel Answer Date Recorded In a typical week, how many times do you talk on the phone with family, friends, or neighbors? More than three times a week 12/21/2023 How often do you get togethe r with friends or relatives? More than three times a week 12/21/2023 How often do you attend chur ch or baptism services? More than 4 times per year 12/21/2023 Do you belong to any clubs o r organizations such as denominational groups, unions, fraternal or athletic groups, or school groups? No 12/21/2023 How often do you attend meet ings of the clubs or organizations you belong to? Never 12/21/2023 Are you , , di vorced, , never , or living with a partner? 12/21/2023 AUDIT-C Answer Date Recorded Q1: How often do you have a drink containing alcohol? Monthly or less 10/30/2024 Q2: How many drinks containi ng alcohol do you have on a typical day when you are drinking? Patient does not drink Q3: How often do you have si x or more drinks on one occasion? Never 10/30/2024 Overall Financial Resource Strain (CARDIA) Answe r Date Recorded How hard is it for you to pa y for the very basics like food, housing, medical care, and heating? Hard 12/21/2023 PHQ-2 Answer Date Recorded PHQ-2 Total Score (If total score is 3 or more points, staff should administer the PHQ-9) 0 02/15/2020 Hunger Vital Sign Answer Date Recorded Within the past 12 months, y ou worried that your food would run out before you got the money to buy more. Sometimes true Within the past 12 months, t he food you bought just didn't last and you didn't have money to get more. Sometimes true PRAPARE - Transportation Answer Date Re corded In the past 12 months, has l ack of transportation kept you from medical appointments or from getting medications? Yes 11/27 In the past 12 months, has l ack of transportation kept you from meetings, work, or from getting things needed for daily living? Yes 12/21/2023 Housing Stability Vital Sign Answer Tylor e Recorded In the last 12 months, was t here a time when you were not able to pay the mortgage or rent on time? No 12/21/2023 In the past 12 months, how m any times have you moved where you were living? 0 12/21/2023 At any time in the past 12 m [facility], were you homeless or living in a prison (including now)? No 12/21/2023 Personal Safety Answer Date Recorded Have you ever been in or are you currently in a harmful physical or emotional relationship or is someone making you feel afraid or unsafe? 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 Gender Identity Not on file Sexual Orientation Not on file Obstetrics History Last Filed Vital Signs Vital Sign Reading Time Taken Comments Blood Pressure 129/76 03/06/2025 1:57 PM CDT Pulse 80 03/06/2025 1:57 PM CDT Temperature 36.8 C (98.2 F) 03/06/2025 1:57 PM CDT Respiratory Rate 16 03/06/2025 1:57 PM CDT Oxygen Saturation 97% 03/06/2025 1:57 PM CDT Inhaled Oxygen Concentration - - Weight 68 kg (150 lb) 10/30/2024 8:34 AM CDT Height 160 cm (5' 3) 11/24/2024 3:53 PM CDT Body Mass Index 29.29 08/30/2024 7:45 AM PARTNER MANAGEMENT CONSULTANT Plan of Treatment Health Maintenance Due Date Last Done Comments Hepatitis C Screening 1950 Dilated Eye Exam 1962 DTaP/Tdap/Td Vaccine (1 - Tdap) 1963 Zoster Vaccine (1 of 2) 2002 Well Visit 65+ 2017 Osteoporosis Screening-Bone Density Scan 06/09/2020 06/09/2018, 06/09/2018 Depression Screening 02/14/2021 02/15/2020 Foot Exam 02/14/2021 02/15/2020 Lipid Panel 02/14/2021 02/15/2020, 05/29, 03/22/2018 TSH Level 07/01/2021 07/01/2020, 01/26, 09/26/2019, Additional history exists Breast Cancer Screening-Mammogram 04/22/2022 04/22/2021, 10/16/2020, 07/11/2019, Additional history exists Albumin Creatinine Ratio, Urine 09/01/2022 09/01/2021, 02/28/2021, 02/15/2020 Hemoglobin A1C 06/22/2024 12/22/2023, 100 12/2020, 04/04/2020, Additional history exists Fall Risk Assessment 08/30/2025 08/30/2024, 02/15/20 Covid-19 Vaccine (2023-07 5 season) 2025 03/14/2025, 04/02/2021, 08/23/2020, Additional history exists eGFR 09/23/2025 09/23/2024, 08/2024, 12/28/2023, Additional history exists Colon Cancer Screening-Colonoscopy 08/30/2034 08/30/2024 Hepatitis B Screening Completed 05/12/2006 , 10/06/2005, 08/28/2005 Colon Cancer Screening-CT Colonography Discontinued 08/30/2024 Colon Cancer Screening-DNA Stool Discontinued 08/31/19 Colon Cancer Screening-FIT Discontinued 08/30/2024, Colon Cancer Screening-Sigmoidoscopy Discontinued 08/30/2024 Influenza Vaccine Completed 03/14/2025, , 04/03/2021, Additional history exists Pneumococcal vaccine 65+ Completed 025, 04/03/2021, 03/19/2021, Additional history exists Medical Devices Implanted Type Area Forge Shop Supervisor Device Identifier Shelf Expiration Date Model / Serial / Lot Ankle Screw Right: Ankle Procedures Procedure Name Priority Date/Time Associated Diagnosis Comments XR FOOT RIGHT 3 OR MORE VIEWS Schedule Routine, Read Routine (OP Routine) 03/19/2025 9:28 AM CDT Right foot pain XR ANKLE RIGHT 3 OR MORE VIEWS Schedule Routine, Read Routine (OP Routine) 03/14/2025 1:02 PM CDT Acute right ankle pain XR ANKLE RIGHT 3 OR MORE VIEWS ED 03/06/2025 3:23 PM CDT XR CHEST PA LATERAL 2 VIEWS Schedule Routine, Read Routine (OP Routine) 02/01/2025 8:51 AM CDT Cough in adult patient EGFR STAT 09/23/2024 2:28 PM CDT COLONOSCOPY 08/30/2024 9:02 AM PARTNER MANAGEMENT CONSULTANT HEMOGLOBIN A1C Routine 12/22/2023 11:10 AM CDT ALBUMIN CREATININE RATIO, URINE Routine 09/01/2021 9:43 AM PARTNER MANAGEMENT CONSULTANT SCREENING MAMMOGRAM BILATERAL W LEN Schedule Routine, Read Routine (OP Routine) 04/22/2021 11:51 AM CDT Visit for screening mammogram LIPID PANEL Routine 02/15/2020 12:08 PM CDT Type 2 diabetes mellitus with stage 3 chronic kidney disease, without long-term current use of insulin (HCC) THYROID FUNCTION CASCADE STAT 02/10/2020 9:15 PM CDT from Last 3 Months or Most Recently Relevant to Health Maintenance Results * XR Foot Right 3 or More Views (03/19/2025 9:28 AM CDT) Anatomical Region Laterality Modality Lower Extremities, Foot Right Computed Radiography 03/20/2025 9:36 AM CDT Narrative 03/20/2025 9:38 AM CDT EXAM DESCRIPTION: XR FOOT RIGHT 3 OR MORE VIEWS REASON FOR STUDY: Right foot pain. Palpable knot in the 1st digit for 5+ years. No reported injury. TECHNIQUE: Three views of the right foot COMPARISON: Right foot radiographs 08/12/2014 FINDINGS: BONES/JOINTS: No acute fracture or dislocation. Mild to moderate diffuse interphalangeal joint osteoarthritis. Moderate osteoarthritis of the 1st metatarsophalangeal joint with hallux valgus deformity and a 1st metatarsophalangeal joint angle of 35 degrees. Associated bunion deformity. These changes have progressed from 2015. Screw fixation of the medial malleolus and plate fixation of the distal fibula are only partially visualized. Plantar surface calcaneal spur measuring 5 mm. Mild midfoot osteoarthritis. SOFT TISSUES: Within normal limits. IMPRESSION: 1. No acute osseous abnormality. 2. Moderate osteoarthritis of the 1st metatarsophalangeal joint with hallux valgus deformity and a bunion deformity. These changes have progressed from 2015. THIS IS AN ELECTRONICALLY VERIFIED FINAL REPORT 03/20/2025 9:38 AM - Electronically signed by Onesimo PEARSON T: Report ID: [id number] Reading Location: [id number] Procedure Note Onesimo Sinclair MD - 03/20/2025 EXAM DESCRIPTION: XR FOOT RIGHT 3 OR MORE VIEWS REASON FOR STUDY: Right foot pain. Palpable knot in the 1st digit for 5+ years. No reported injury. TECHNIQUE: Three views of the right foot COMPARISON: Right foot radiographs 08/12/2014 FINDINGS: BONES/JOINTS: No acute fracture or dislocation. Mild tomoderate diffuse interphalangeal joint osteoarthritis. Moderate osteoarthritis ofthe 1st metatarsophalangeal joint with hallux valgus deformity and a 1st metatarsophalangeal joint angle of 35 degrees. Associated buniondeformity. These changes have progressed from 2015. Screw fixation of the medial malleolus and plate fixation of the distal fibula are only partially visualized. Plantar surface calcaneal spur measuring 5 mm. Mild midfoot osteoarthritis. SOFT TISSUES: Within normal limits. IMPRESSION: 1. No acute osseous abnormality. 2. Moderate osteoarthritis of the 1st metatarsophalangeal joint withhallux valgus deformity and a bunion deformity. These changes have progressedfrom 2014. THIS IS AN ELECTRONICALLY VERIFIED FINAL REPORT 03/20/2025 9:38 AM - Electronically signed by Onesimo Sinclair M.D. LB T: Report ID: [id number] Reading Location: [id number] [facility] IMG XR PROCEDURES Final Re sult * XR Ankle Right 3 or More Views (03/14/2025 1:02 PM CDT) Anatomical Region Laterality Modality Lower Extremities, Ankle Right Compute d Radiography 03/20/2025 9:13 AM CDT Narrative 03/20/2025 9:36 AM CDT EXAM DESCRIPTION: XR ANKLE RIGHT 3 OR MORE VIEWS REASON FOR STUDY: Medial and lateral right ankle pain since twisting injury 03/04/2025. TECHNIQUE: Three views of the right ankle COMPARISON: Right ankle radiographs 03/06/2025 FINDINGS: BONES/JOINTS: No acute fracture or dislocation. Plate and screw fixation of the distal fibula and screw fixation of the medial malleolus is grossly similar in appearance. The ankle mortise is intact. SOFT TISSUES: Within normal limits. IMPRESSION: 1. No acute osseous abnormality. 2. Plate and screw fixation of the distal fibula and screw fixation of the medial malleolus is grossly similar in appearance. THIS IS AN ELECTRONICALLY VERIFIED FINAL REPORT 03/20/2025 9:36 AM - Electronically signed by Onesimo PEARSON T: Report ID: [id number] Reading Location: [id number] Procedure Note Onesimo Sinclair MD - 03/20/2025 EXAM DESCRIPTION: XR ANKLE RIGHT 3 OR MORE VIEWS REASON FOR STUDY: Medial and lateral right ankle pain since twistinginjury 03/04/2025. TECHNIQUE: Three views of the right ankle COMPARISON: Right ankle radiographs 03/06/2025 FINDINGS: BONES/JOINTS: No acute fracture or dislocation. Plate andscrew fixation of the distal fibula and screw fixation of the medial malleolusis grossly similar in appearance. The ankle mortise is intact. SOFT TISSUES: Within normal limits. IMPRESSION: 1. No acute osseous abnormality. 2. Plate and screw fixation of the distal fibula and screw fixation ofthe medial malleolus is grossly similar in appearance. THIS IS AN ELECTRONICALLY VERIFIED FINAL REPORT 03/20/2025 9:36 AM - Electronically signed by Onesimo Carlos.D. LB T: Report ID: [id number] Reading Location: [id number] [facility] IMG XR PROCEDURES Final Re sult * XR Ankle Right 3 or More Views (03/06/2025 3:23 PM CDT) Anatomical Region Laterality Modality Lower Extremities, Ankle Right Compute d Radiography 03/06/2025 3:59 PM CDT Narrative 03/06/2025 4:00 PM CDT EXAM DESCRIPTION: XR ANKLE RIGHT 3 OR MORE VIEWS REASON FOR STUDY: Pain, Lower Extremity Injury or Trauma Pt twisted ankle 2-3 days ago Has swelling and pain Hx previous injury with reconstructive surgery TECHNIQUE: 3 radiographic view(s) of the right ankle . COMPARISON: None FINDINGS: There is mild osteopenia. There is no definite evidence of acute displaced fracture or dislocation involving the right ankle. Postsurgical changes are noted involving the distal right fibula with fixation plate and screws. Postsurgical changes are noted involving the medial malleolus with fixation screws. There is no definite evidence of hardware abnormality. The ankle mortise alignment is grossly well maintained. There are mild degenerative changes right ankle with joint space narrowing, minimal sclerosis, and minimal spurring. There are small calcaneal enthesophytes noted insertion of the Achilles and plantar tendons. There is mild soft tissue swelling. IMPRESSION: 1. Mild osteopenia with mild soft tissue swelling involving the right ankle without definite evidence of acute displaced fracture or dislocation. THIS IS AN ELECTRONICALLY VERIFIED FINAL REPORT 03/06/2025 4:00 PM - Electronically signed by Joy LIN T: Report ID: [id number] Reading Location: [id number] Procedure Note Joy Galicia, - 03/06/2025 EXAM DESCRIPTION: XR ANKLE RIGHT 3 OR MORE VIEWS REASON FOR STUDY: Pain, Lower Extremity Injury or Trauma Pt twisted ankle 2-3 days ago Has swelling and pain Hx previous injurywith reconstructive surgery TECHNIQUE: 3 radiographic view(s) of the right ankle . COMPARISON: None FINDINGS: There is mild osteopenia. There is no definite evidence ofacute displaced fracture or dislocation involving the right ankle. Postsurgical changes are noted involving the distal right fibula with fixation plateand screws. Postsurgical changes are noted involving the medial malleoluswith fixation screws. There is no definite evidence of hardware abnormality.The ankle mortise alignment is grossly well maintained. There are mild degenerative changes right ankle with joint space narrowing, minimal sclerosis, and minimal spurring. There are small calcaneal enthesophytes noted insertion of the Achilles and plantar tendons. There is mild soft tissue swelling. IMPRESSION: 1. Mild osteopenia with mild soft tissue swelling involving the rightankle without definite evidence of acute displaced fracture or dislocation. THIS IS AN ELECTRONICALLY VERIFIED FINAL REPORT 03/06/2025 4:00 PM - Electronically signed by Joy LIN T: Report ID: [id number] Reading Location: [id number] [facility] Carmine CARL IMG XR PROCEDURES Final Result * XR Chest PA Lateral 2 Views (02/01/2025 8:51 AM CDT) Anatomical Region Laterality Modality Body, Chest N/A Computed Radiogr aphy 02/16/2025 7:18 AM CDT Narrative 02/16/2025 7:19 AM CDT EXAM DESCRIPTION: XR CHEST PA LATERAL 2 VIEWS REASON FOR STUDY: OVERWEIGHT,COUGH Pt sts cough x 3 wks. SOB. Denies chest pain. Nonsmoker but is around second hand smoke. TECHNIQUE: Two views COMPARISON: 12/20/2023 FINDINGS: Heart size and vascularity appear normal. Aortic arch well-defined on the left. Granulomatous calcification both upper lung maradiaga unchanged. No dense consolidation, effusion or pneumothorax. IMPRESSION: No acute findings. THIS IS AN ELECTRONICALLY VERIFIED FINAL REPORT 02/16/2025 7:19 AM - Electronically signed by Colt LAIRD T: Report ID: [id number] Reading Location: [id number] Procedure Note Colt Saenz MD - 02/16/2025 EXAM DESCRIPTION: XR CHEST PA LATERAL 2 VIEWS REASON FOR STUDY: OVERWEIGHT,COUGH Pt sts cough x 3 wks. SOB. Denies chest pain. Nonsmoker but is aroundsecond hand smoke. TECHNIQUE: Two views COMPARISON: 12/20/2023 FINDINGS: Heart size and vascularity appear normal. Aortic arch well-defined on the left. Granulomatous calcification both upper lung maradiaga unchanged. No dense consolidation, effusion or pneumothorax. IMPRESSION: No acute findings. THIS IS AN ELECTRONICALLY VERIFIED FINAL REPORT 02/16/2025 7:19 AM - Electronically signed by Colt Saenz M.D. RB T: Report ID: [id number] Reading Location: [place] [id number] us Carly Oliver GARLAND MACHINE OPERATOR IMG XR PROCEDURES Final R esult * eGFR (09/23/2024 2:28 PM CDT) eGFR 89 >=60 mL/min/1. 73 m2 Comment: Interpretive Data Reference Interval Normal >/= 90 mL/min/1.73m2 Mildly decreased* 60 - 89 mL/min/1.73m2 Mildly to moderately decreased 45 - 59 mL/min/1.73m2 Moderately to severely decreased 30 - 44 mL/min/1.73m2 Severely decreased 15 - 29 mL/min/1.73m2 Kidney Failure < 15 mL/min/1.73m2 *Relative to young adult level Estimated glomerular filtration rate is determined by the 2020 CKD-EPI equation recommended by the National Kidney Foundation (A Unifying Approach to GFR Estimation: Recommendations of the NKF-ASK Task Force on Reassessing the Inclusion of Race in Diagnosing Kidney Disease, JASN 2020). The CKD-EPI equation should not be used for patients with unstable renal function and has not been validated in children and those over 70. Current interpretive data was last reviewed 2021. Blood 09/23/2024 2:28 PM CDT 09/23/2024 2:31 PM CDT us Nisha CAM LAB BLOOD ORDERABLES Final Resul t KETTY [address] Department [place] [address] * Colonoscopy (08/30/2024 9:02 AM PARTNER MANAGEMENT CONSULTANT) Anatomical Region Laterality Modality Other Narrative Procedure Note Joao Liu MD - 08/30/2024 9:02 AM CST [facility] GI ENDOSCOPY Patient Name: Renate Padilla Procedure Date: 08/30/2024 9:02 AM Date of : 1950 Admit Type: Outpatient Age: 74 Gender: Female Attending MD: Joao Liu M.D. Room: [facility] ENDOSCOPY ROOM 06 Note Status: Finalized Procedure: Colonoscopy Indications: Chronic abd pain, Chronic diarrhea, High risk -family history of colon cancer Referring MD: Providers: Joao Liu M.D. Medicines: See the Anesthesia note for documentation of the administered medications Complications: No immediate complications. Estimated Blood Loss: Estimated blood loss was minimal. Procedure: Pre-Anesthesia Assessment: - Prior to the procedure, a History and Physicalwas performed, and patient medications and allergieswere reviewed. The risks and benefits of the procedureand the sedation options and risks were discussed withthe patient. All questions were answered and informed consent was obtained. Patient identification and proposed procedure were verified. After reviewingthe risks and benefits, the patient was deemed in satisfactory condition to undergo the procedure.The anesthesia plan was to use monitored anesthesiacare (MAC). Immediately prior to administration of medications, the patient was re-assessed foradequacy to receive sedatives. The heart rate, respiratory rate, oxygen saturations, blood pressure, adequacyof pulmonary ventilation, and response to care were monitored throughout the procedure. The physical status of the patient was re-assessed after the procedure. The benefits, risks and alternatives of theprocedure and sedation were discussed and informed consentwas obtained. All questions were answered. Please referto the signed informed consent document in the medical record. The scope was passed under direct vision.The Colonoscope was introduced through the anus and advanced to the terminal ileum, with identificationof the appendiceal orifice and IC valve. Thecolonoscopy was performed without difficulty. The patient tolerated the procedure well. The quality of thebowel preparation was good. Scope insertion time was 5 minutes. Scope withdrawal time was 15 minutes. Prep was administered in a split dose. Findings: The perianal and digital rectal examinations were normal. The visualized terminal ileum appeared normal. Colonic mucosa normal. Biopsies for histology were taken with a cold forceps for evaluation of microscopic colitis. Mild sigmoid colon diverticulosis. A previously placed tattoo was noted in the descending colon. Internal hemorrhoids were found. The hemorrhoids were small. Impression: - The examined portion of the terminal ileum was normal. - Colonic mucosa normal. Biopsied. - Diverticulosis. - Internal hemorrhoids. Recommendation: - Await pathology results. - Resume previous diet today. - Discharge patient to home. - Increase fiber. - Patient has a contact number available for emergencies. The signs and symptoms of potential delayed complications were discussed with thepatient. Return to normal activities tomorrow. Written discharge instructions were provided to thepatient. - Repeat colonoscopy in 5 years for screeningpurposes. - I would be happy to see you in my GI clinic ifyou have further questions or concerns or if symptoms progress Joao Liu M.D. 08/30/2024 9:54:21 AM Number of Addenda: 0 Note Initiated On: 08/30/2024 9:02 AM Recognized by the [place] [employer] for promoting quality in endoscopy Joao Liu MD ENDOSCOPY PROCEDURES Stephanie l Result * Hemoglobin A1c (12/22/2023 11:10 AM CDT) Pathologist [facility] [place] Hgb A1C 5.5 4.0 - 5.6 % Estimated Average Glucose 111 mg/dL [facility] Comment: The ADA recommends reporting an estimated Average Glucose (eAG) with all Hemoglobin A1c results using the equation derived from a study of 507 normal and diabetic adults. Minority populations were underrepresented and children were not included. (Diabetes Care 31:7264-8753, 2008). The eAG is not equivalent to a fasting glucose. Blood 12/22/2023 11:1 0 AM CDT 12/22/2023 11:20 AM CDT Doyle Zaldivar MD LAB BLOOD ORDERABLES F inal Result Performing Organization Address City/[facility] Co de Phone Number [facility] [address] Department [place] [address] * Albumin Creatinine Ratio, Urine (09/01/2021 9:43 AM PARTNER MANAGEMENT CONSULTANT) Pathologist [facility] [place] Albumin Ur <12.0 mg/L [facility] Comment: Interpretive Data No reference range established. Current interpretive data was last revised 2018. Creatinine Ur 47.6 mg/dL [facility] Comment: Interpretive Data No reference range established. Current interpretive data was last revised 2018. Albumin Creatinine Ratio, Ur <25 1 - 29 mg/g [facility] Urine 09/01/2021 9:43 AM PARTNER MANAGEMENT CONSULTANT 09/01/2021 9:43 AM PARTNER MANAGEMENT CONSULTANT Angela Ibrahim MD LAB URINE ORDERABLES Final Result [facility] [address] Department [place] [address] * Screening Mammogram Bilateral W Len (04/22/2021 11:51 AM CDT) Anatomical Region Laterality Modality Breast Bilateral Mammography Narrative 04/24/2021 1:46 PM CDT Screening Mammogram Bilateral W Len: 04/22/21 Clinical: Visit for screening mammogram. Prior Study Comparisons: Comparison was made to the prior available relevant studies at the time of interpretation. Findings: Bilateral No significant masses, malignant type calcifications, skin thickening, nipple retraction, or significant lymphadenopathy is noted in either breast. The CAD review showed no significant findings. The breasts are heterogeneously dense, which may obscure small masses. The patient will be notified of results by letter. Impression: BI-RADS ATLAS category (overall): 2 Benign There is no mammographic evidence of malignancy. Routine Screening Mammogram in 1 Yr is recommended for bilateral Overall Assessment: 2 - Benign us Physician No IMG MAMMO PROCEDURES Final Resul t * (ABNORMAL) Lipid panel (02/15/2020 12:08 PM CDT) Cholesterol 165 30 - 199 mg/dL [facility] Comment: Interpretive Data Ages < or = 19 years Acceptable: <170 mg/dL Borderline high: 170-199 mg/dL High: >or= 200 mg/dL Ages > or = 20 years Desirable: <200 mg/dL Borderline high: 200-239 mg/dL High: >or= 240 mg/dL Literature References: 1. Expert Panel on Integrated Guidelines for Cardiovascular Health and Risk Reduction in Children and Adolescents. Pediatrics 2011;128:S213 2. NCEP Expert Panel. Circulation 2004;110:227 Current Interpretive Data was last revised on 2018. Triglycerides 245(H) <=149 mg/dL [facility] Comment: Interpretive Data Ages < or = 9 years Acceptable: <75 mg/dL Borderline high: 75-99 mg/dL High: >or= 100 mg/dL Ages 10 to 20 years Acceptable: <90 mg/dL Borderline high: 90-129 mg/dL High: >or= 130 mg/dL Ages > or = 20 years Desirable: <150 mg/dL Borderline high: 150-199 mg/dL High: 200-499 mg/dL Very high: >or= 499 mg/dL Literature References: 1. Expert Panel on Integrated Guidelines for Cardiovascular Health and Risk Reduction in Children and Adolescents. Pediatrics 2011;128:S213 2. NCEP Expert Panel. Circulation 2004;110:227 Current Interpretive Data was last revised on 2018. HDL 42 >=40 mg/dL [facility] Comment: Interpretive Data Ages < or = 19 years Acceptable: >45 mg/dL Borderline low: 40-45 mg/dL Low: <40 mg/dL Ages > or = 20 years Desirable: >or= 60 mg/dL Low: <40 mg/dL Literature References: 1. Expert Panel on Integrated Guidelines for Cardiovascular Health and Risk Reduction in Children and Adolescents. Pediatrics 2011;128:S213 2. NCEP Expert Panel. Circulation 2004;110:227 Current Interpretive Data was last revised on 2018. LDL, calculated 74 <=129 mg/dL [facility] Comment: Interpretive Data Ages < or = 19 years Acceptable: <110 mg/dL Borderline high: 110-129 mg/dL High: >or= 130 mg/dL Ages > or = 20 years Optimal: <100 mg/dL Near optimal: 100-129 mg/dL Borderline high: 130-159 mg/dL High: >160 mg/dL Literature References: 1. Expert Panel on Integrated Guidelines for Cardiovascular Health and Risk Reduction in Children and Adolescents. Pediatrics 2011;128:S213 2. NCEP Expert Panel. Circulation 2003;110:227 Current Interpretive Data was last revised on 2018. Non-HDL Cholesterol 123 mg/dL [facility] Comment: Interpretive Data Ages < or = 19 years Acceptable: <120 mg/dL Borderline high: 120-144 mg/dL High: >145 mg/dL Ages > or = 20 years When triglycerides are >200 mg/dL, Non-HDL cholesterol is a secondary target of therapy with treatment goals that are 30 mg/dL greater than the LDL cholesterol target. Literature References: 1. Expert Panel on Integrated Guidelines for Cardiovascular Health and Risk Reduction in Children and Adolescents. Pediatrics 2011;128:S213 2. NCEP Expert Panel. Circulation 2003;110:227 Current Interpretive Data was last revised on 2018. Chol/HDL ratio 4 [facility] Blood specimen (specimen) 02/15/2020 12:08 PM CDT 02/15/2020 12:08 PM CDT us Humberto Martinez MD LAB BLOOD ORDERABLES Final Result Performing Organization Address [facility]/ZIP Co de Phone Number [facility] [address] [place] [address] * (ABNORMAL) TSH reflex to free T4 (02/10/2020 9:15 PM CDT) TSH 4.97(H) 0.30 - 4.20 mcIUnit/mL [facility] Blood specimen (specimen) 02/10/2020 9:15 PM CDT 02/10/2020 9:18 PM CDT us Kenny Ovalle MD LAB BLOOD ORDERABLES Final Res ult Performing Organization Address [facility] Co de Phone Number [facility] [address] [place] [address] from Last 3 Months or Most Recently Relevant to Health Maintenance Insurance [facility] MEDICARE ADVANTAGE [facility] [employer] ADV[facility] Member Subscriber Plan / Payer (Ef fective 2020-Present) Name:Renate Padilla Relation to Subscriber:Self Name:Renate Padilla Payer ID:[id number] (NAIC) Type:[facility] MEDIC[facility] Address: [place] [id number] [place] [id number] [employer] MED[place]AGE [place] Member Subscriber Plan / Payer (Ef fective 2021-Present) Name:Renate Padilla Relation to Subscriber:Self Name:Renate Padilla Payer ID:[id number] (NAIC) Type:MEDICARE RISK OTHER Address: [place] [id number] [place] [id number] [facility] MEDICARE ADVANTAGE [place] [id number] [employer] Advance Directives For more information, please contact: [phone] * Full Code (Latest Code Status on File) Date Activated Date Inactivated Comments 12/20/2023 11:06 PM 12/28/2023 3:42 PM * Full Code Date Activated Date Inactivated Comments 02/11/2020 3:19 AM 02/11/2020 9:36 PM * Full Code Date Activated Date Inactivated Comments 12/03/2018 3:09 PM 12/04/2018 7:32 PM Care Teams Claims Service Representative Relationship Specialty Start Date End Date Sung Ybarra MD [address] [place] [address] PCP - General Internal Medicine 12/21/23 Humberto Martinez MD Family Medicine 04/17/21 Mitchel Ugarte MD [address] [place] [address] [place] [address] Consulting Physician Neurology 12/28/23 Krupa Saunders OT Occupational Therapist Occupational Therapy 01/05/24
--- OUTSIDE RECORDS SUMMARY | 2025-04-15 11:43 | XMS_ITS | Clinical Summary ---
Author Organization [employer] [facility] Address [address] [place] [address] Phone Care Team Providers Care Renal Dietitian Name Role Phone Unavailable Primary Care Provider Unavailabl e Allergies Active Allergy Reactions Criticality Noted Date Comments Iodinated Contrast Media Nausea and Vomi ting,Other (See Comments),Unknown Low 08/31/2014 Misoprostol Rash Low 08/24/2014 Oxaprozin Rash Low 08/24/2014 Medications NITROSTAT 0.4 mg Tablet, Sublingual PLACE 1 TABLET UNDER THE TONGUE EVERY 5 MINUTES NEEDED FOR CHEST PAIN 25 Tablet 11/03/19 17 Active NARCAN 4 mg/actuation Vernon, Non-Aerosol U NASALLY UTD 0 06/13/20 18 Active acetaminophen-c odeine (TYLENOL #3) 300-30 mg tablet Take 2 Tablets by mouth every 8 hours as needed for Pain, Moderate. Active CPAP / BIPAP supplies Length of need: 99 months Mask Type: full face with headgear every 6 months, mask every month,4 cushions per month. Tubing: non heated 1 every 3 months, water chamber 1 every 6 months, chin strap 1 every 6 months, filters disposable 2 per month, filters reusable 1 per 6 months. 1 Each 07/26/19 20 Active Blood-Glucose Meter (Blood Glucose Monitoring) KitIndications: Type 2 diabetes mellitus without complication, without long-term current use of insulin Take blood sugar prn 1 Each 10/02/19 20 Active polyethylene glycol (MIRALAX) 17 gram Powder in Packet Take 17 Grams by mouth 1 time daily as needed. Active budesonide-form oteroL (Symbicort) 160-4.5 mcg/actuation HFA Aerosol InhalerIndicati ons:Pulmonary emphysema, unspecified emphysema type INHALE 2 PUFFS BY MOUTH TWICE DAILY IN THE MORNING AND IN THE EVENING 10.2 Gram 2 07/09/19 21 Active folic acid (FOLVITE) 400 mcg TabletIndicatio ns:Irritable bowel syndrome, unspecified type Take 1 Tablet (0.4 mg) by mouth daily. 30 Tablet 2 07/09/19 21 Active ipratropium-alb uteroL (DUONEB) 0.5 mg-3 mg(2.5 mg base)/3 mL Solution for NebulizationInd ications:Chroni c obstructive pulmonary disease, unspecified COPD type (CMS/HCC) USE 1 VIAL VIA NEBULIZER EVERY 6 HOURS NEEDED FOR SHORTNESS OF BREATH 180 mL 07/09/19 21 Active loperamide (IMODIUM) 2 mg capsuleIndicati ons:Acute diarrhea Take 1 Capsule (2 mg) by mouth every 3 hours as needed for Diarrhea/Loose Stools. 30 Capsule 07/09/19 21 Active fluticasone propionate (FLONASE) 50 mcg/spray Vernon, Suspension nasal inhalerIndicati ons:Chronic obstructive pulmonary disease, unspecified COPD type (CMS/HCC) Administer 2 Sprays in each nostril daily. 16 Gram 2 07/09/19 21 Active blood sugar diagnostic (OneTouch Ultra Blue Test Strip) StripIndication s:Type 2 diabetes mellitus without complication, without long-term current use of insulin TEST THREE TIMES DAILY NEEDED 200 Strip 1 12/25/19 21 Active lancetsIndicati ons:Type 2 diabetes mellitus without complication, without long-term current use of insulin Test blood sugar three times a daily 180 Each 1 12/26/19 21 Active Restasis 0.05 % emulsionIndicat ions:Dry eyes INSTILL 1 DROP INTO BOTH EYES TWICE DAILY 30 Each 2 02/11/20 21 Active rizatriptan (MAXALT BAR AND FILLER ASSEMBLER) 10 mg Tablet, Rapid DissolveIndicat ions:Chronic migraine without aura without status migrainosus, not intractable Place 1 Tablet (10 mg) inside cheek see administration instructions. may repeat in 2 hours; max dose 20mg in 24 hours 12 Tablet 2 03/07/20 21 Active aspirin (LATOYA CHEWABLE) 81 mg Tablet, ChewableIndicat ions:Chronic heart failure with preserved ejection fraction CHEW AND SWALLOW 1 TABLET(81 MG) BY MOUTH DAILY 90 Tablet 3 07/15/19 22 Active furosemide (LASIX) 40 mg tablet TAKE 1 TABLET(40 MG) BY MOUTH EVERY DAY NEEDED FOR SWELLING 90 Tablet 3 10/11/19 22 Active hydrOXYzine HCL (ATARAX) 50 mg tabletIndicatio ns:Pruritus Take 2 Tablets (100 mg) by mouth 3 times daily as needed for Itching. 360 Tablet 3 11/14/19 22 Active carbidopa-levod opa (SINEMET) 25-100 mg tabletIndicatio ns:Chronic right-sided low back pain with right-sided sciatica Take 1 Tablet by mouth daily at bedtime. 90 Tablet 1 11/27/19 Active ondansetron (ZOFRAN ODT) 4 mg Tablet, Rapid Dissolve Take 1 Tablet (4 mg) by mouth every 8 hours as needed for Nausea/Emesis. Dissolve tablet on top of tongue, then swallow with saliva. 15 Tablet 01/04/20 Active dulaglutide (Trulicity) 1.5 mg/0.5 mL injectionIndica tions:Type 2 diabetes mellitus without complication, without long-term current use of insulin ADMINISTER 1.5 MG UNDER THE SKIN EVERY 7 DAYS FOR DIABETES 6 mL 3 01/09/20 22 Active neomycin-bacitr acin-polymyxin (Triple Antibiotic) 3.5mg-400 unit- 5,000 unit/gram OintmentIndicat ions:Wasp sting, accidental or unintentional, initial encounter Apply to affected area 2 times daily. 01/20/20 22 Active ferrous sulfate 325 mg (65 mg iron) tabletIndicatio ns:Restless leg Take 1 Tablet (325 mg) by mouth daily. 90 Tablet 1 01/21/20 22 Active carvediloL (COREG) 6.25 mg tabletIndicatio ns:Chronic heart failure with preserved ejection fraction,Hypert ensive heart and kidney disease with chronic diastolic congestive heart failure and stage 3a chronic kidney disease TAKE TWICE DAILY. HOLD MEDICATION FOR A DOCUMENTED HEART RATE OF LESS THAN 50BPM OR A SYSTOLIC BLOOD PRESSURE OF LESS THAN 100MMHG. 180 Tablet 3 01/24/20 Active isosorbide mononitrate (IMDUR) 30 mg Extended Release 24 hour tabletIndicatio ns:Stable angina TAKE 1 TABLET(30 MG) BY MOUTH DAILY TORCH STRAIGHTENER 90 Tablet 3 07/29/20 22 Active ranolazine ER (RANEXA) 500 mg Extended Release 12 hour tabletIndicatio ns:Stable angina TAKE 1 TABLET(500 MG) BY MOUTH EVERY 12 HOURS 180 Tablet 3 01/24/20 Active simvastatin (ZOCOR) 40 mg tabletIndicatio ns:Dyslipidemia Take 1 tablet by mouth daily 90 Tablet 3 01/24/20 22 Active pantoprazole (PROTONIX) 40 mg Tablet, Delayed Release (E.C.)Indicatio ns:Abdominal pain, unspecified abdominal location CRUSH 1 TABLET AND MIX INTO FOOD OR WATER AND TAKE BY MOUTH ONCE DAILY 30 Tablet 3 01/31/20 22 Active cetirizine (ZyrTEC) 10 mg tabletIndicatio ns:Pulmonary emphysema, unspecified emphysema type Take 1 Tablet (10 mg) by mouth daily. 90 Tablet 1 01/31/20 22 Active promethazine (PHENERGAN) 25 mg tabletIndicatio ns:Spinal stenosis, unspecified spinal region TAKE 1 TABLET BY MOUTH TWICE DAILY NEEDED 180 Tablet 1 01/31/20 22 Active cyanocobalamin (VITAMIN B-12) 1,000 mcg/mL SolutionIndicat ions:Vitamin D deficiency ADMINISTER 1 ML IN THE MUSCLE 1 TIME MONTHLY 1 mL 2 02/24/20 Active tiotropium (Spiriva Respimat) 2.5 mcg/actuation MistIndications :Chronic obstructive pulmonary disease, unspecified COPD type (CMS/HCC) INHALE 2 PUFFS BY MOUTH DAILY Strength: 2.5 mcg/actuation 4 Gram 2 04/03/20 Active spironolactone (ALDACTONE) 25 mg tabletIndicatio ns:Chronic heart failure with preserved ejection fraction Take 1 Tablet (25 mg) by mouth daily. 90 Tablet 3 04/17/20 22 Active ergocalciferol (VITAMIN D2) 50,000 unit capsuleIndicati ons:Vitamin D deficiency Take 1 Capsule (50,000 Units) by mouth every 7 days. 12 Capsule 1 04/23/20 22 Active magnesium oxide (MAG-OX) 400 mg (241.3 mg magnesium) tabletIndicatio ns:Irritable bowel syndrome, unspecified type TAKE 1 TABLET(400 MG) BY MOUTH DAILY 90 Tablet 2 06/16/20 22 Active montelukast (SINGULAIR) 10 mg tabletIndicatio ns:Panlobular emphysema Take 1 Tablet (10 mg) by mouth daily at bedtime. 90 Tablet 1 06/16/20 22 Active predniSONE (DELTASONE) 20 mg tabletIndicatio ns:Acute gout, unspecified cause, unspecified site Take 2 tablets by mouth once daily in the morning 10 Tablet 06/18/20 22 Active gabapentin (NEURONTIN) 400 mg capsuleIndicati ons:Restless leg TAKE 1 CAPSULE(400 MG) BY MOUTH THREE TIMES DAILY 90 Capsule 2 07/13/19 23 Active dicyclomine (BENTYL) 20 mg tablet Take 1 Tablet (20 mg) by mouth 4 times daily before meals and at bedtime. 40 Tablet 07/17/19 23 Active albuterol sulfate HFA 90 mcg/actuation aerosol inhalerIndicati ons:Chronic obstructive pulmonary disease, unspecified COPD type (CMS/HCC) INHALE 2 PUFFS BY MOUTH EVERY 6 HOURS NEEDED FOR WHEEZING OR SHORTNESS OF BREATH 8.5 Gram 1 07/17/19 23 Active potassium chloride (KLOR-CON) 20 mEq Extended Release tablet Reports taking 40 mEq in the AM and 20 mEq in the PM 05/14/20 22 Active naproxen (NAPROSYN) 500 mg tabletIndicatio ns:Acute gout, unspecified cause, unspecified site Take 1 Tablet (500 mg) by mouth 2 times daily as needed for Pain, Moderate. 60 Tablet 1 08/11/19 23 Active Active Problems Patient Care Coordination No te Formatting of this note migh t be different from the original. Litigator: Tonya Zaldivar MD, [facility], [facility] Problem Noted Date Diagnosed Date Chronic migraine without aur a without status migrainosus, not intractable 02/26/2021 Calcified granuloma of lung 06/12/2020 Chronic heart failure with preserved ejection fr action 06/12/2020 COPD 02/29/2020 CKD (chronic kidney disease) stage 3, GFR 30-59 ml/min 02/29/2020 Type 2 DM with stage 3 chronic kidney disease GF R 30-59 02/29/2020 Type 2 diabetes mellitus wit h diabetic polyneuropathy, without long-term current use of insulin 11/28/2019 Obesity (BMI 35.0-39.9 without comorbidity) 05/29 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 Chronic kidney disease (CKD) Overview (08/24/2014): Stage 3 Dyslipidemia GERD (gastroesophageal reflux disease) Hypertensive heart disease w ith heart failure and stage 3 chronic kidney disease Obesity Spinal stenosis Resolved Problems Problem Noted Date Diagnosed Date Resolved Date Severe obesity (BMI 35.0-39. 9) with comorbidity 06/16/2019 06/12/2020 Hypothyroidism 09/02/2018 11/29/2019 Severe obesity (BMI 35.0-39. 9) with comorbidity 04/15/2018 02/16/2019 Stable angina 07/23/2017 11/01/2020 Panlobular emphysema 020 Diastolic heart failure 12/2015 Tachycardia 04/03/2016 Anxiety 03/08/2018 Immunizations Immunization Administration Dates Next Due (Inveshare)(12 YR UP) COVID-19 VACCINE - EMERGENCY USE AUTHORIZATION, MRNA, [id number](PF) 30 MCG/0.3 ML IM SUSP 04/02/2021,08/23/2020,08/01/2020 (PNEUMOVAX 23)(50 YRS UP) PN EUMOCOCCAL POLYSACCHARIDE (PPV23) 0.5 ML, IM 04/10/2008 (PREVNAR 13)(6 WKS UP) PNEUM OCOCCAL CONJUGATE (PCV13) 0.5 ML, IM 03/19/2021,05/24/2018,04/16/2015 (TWINRIX)(18 YRS UP) HEPATIT IS A AND HEPATITIS B VACCINE ADULT, 1 ML, IM 05/12/2006,10/06/2005,08/28/2005 INFLUENZA VACCINE HIGH DOSE QUADRIVALENT 65 YR UP PF IM 05/12/2021,04/03/2021 INFLUENZA VACCINE QUADRIVALE NT 6 MOS UP PF IM 04/04/2020,03/19/2020,04/04/2019 Influenza Seasonal Unspecifi ed Formulation IM 04/01/2017,04/05/2016,04/02/2015,02/11 Influenza Vaccine High Dose 65+ Yrs IM 8 Influenza Vaccine Split 3+ Yrs IM 04/02/2014 Influenza Vaccine Split 3+ Yrs PF IM 04/09/2016, 04/16/2015 PREVNAR (PCV13) pneumococcal 13-valent conjugate Vaccine 04/03/2021,05/24/2018 Family History Medical History Relation Name Comments Aneurysm Father Colon Cancer Father Aneurysm Mother Esophageal Cancer Neg Hx Relation Name Status Comments Daughter 1 Alive Daughter 2 Alive Father Mother Son 1 Alive Son 2 Social History Tobacco Use Types Packs/Day Years Used Date Smoking Tobacco: Never Smokeless Tobacco: Never Tobacco Cessation:Counseling Given: No Comments:Second hand smoke exposure Alcohol Use Standard Drinks/Week Comments No 0 (1 standard drink = 0.6 oz pur e alcohol) Social Connections Answer Date Recorded In a typical week, how many times do you talk on the telephone with family, friends, or neighbors? Once a week 12/28 How often do you get togethe r with friends or relatives? Once a week 01/24/2021 How often do you attend chur ch or pentecostalism services? 1 to 4 times per year 01/24/2021 Do you belong to any clubs o r organizations such as judaism groups, unions, fraternal or athletic groups, or school groups? No 01/24/2021 How often do you attend meet ings of the clubs or organizations you belong to? Never 01/24/2021 Are you , , di vorced, , never , or living with a partner? 01/24/2021 Financial Resource Strain Answer Date R ecorded How hard is it for you to pa y for the very basics like food, housing, medical care, and heating? Not very hard 11/13/2021 Food Insecurity Answer Date Recorded In the past 12 months, have you worried that your food would run out before you had money to buy more? Sometimes true 2021 In the past 12 months, did y ou run out of food and didn't have money to buy more? Never true 11/13/2021 Transportation Needs Answer Date Record ed In the past 12 months, has l ack of transportation kept you from medical appointments or from getting medications? No 11/13/2021 Lack of Transportation (Non-Medical) Not on file 11/13/2021 Housing Stability Answer Date Recorded In the last 12 months, was t here a time when you were not able to pay the mortgage or rent on time? No 01/24/2021 In the past 12 months, how m any times have you moved where you were living? 1 01/24/2021 At any time in the past 12 m [facility], were you homeless or living in a senior living (including now)? Yes 01/24/2021 Comments No Sex and Gender Information Value Date Recorded Sex Assigned at Not on file Legal Sex Female 5:16 PM PERSONAL COACH Gender Identity Not on file Sexual Orientation Not on file Last Filed Vital Signs Vital Sign Reading Time Taken Comments Blood Pressure 138/68 08/07/2022 10:03 AM PERSONAL COACH Pulse 80 08/07/2022 10:03 AM PERSONAL COACH Temperature 36.4 C (97.5 F) 01/03/2022 11:43 AM CDT Respiratory Rate 18 01/23/2022 2:35 PM CDT Oxygen Saturation 97% 01/23/2022 2:35 PM CDT Inhaled Oxygen Concentration - - Weight 70.6 kg (155 lb 9.6 oz) 08/07/2022 10:00 AM PERSONAL COACH Height 149.9 cm (4' 11) 01/23/2022 2:35 PM CDT Body Mass Index 31.43 01/23/2022 2:35 PM CDT Plan of Treatment Health Maintenance Due Date Last Done Comments DTAP/TDAP/TD VACCINES (1 - Tdap) 1971 FIT-DNA Q 3 years 1997 FIT/FOBT Q 1 year 1997 Flex Sig/CT Colonography Q 5 years 1997 RSV VACCINE (60+ or ) (1 - Risk 50-74 years 1-dose series) 2002 ZOSTER VACCINE (1 of 2) 2002 DIABETES MICROALBUMIN ANNUAL SCREEN 12/11/2020 12/12/2019 DIABETES HBA1C Q 6 MONTHS 02/09/20222021, 04/03/2021, 10/08/2020, Additional history exists DIABETES ANNUAL RETINAL EXAM 02/17/2022, 02/16/2020, 08/04/2016, Additional history exists LDL CHOLESTEROL ANNUAL 04/03/2022 , 06/16/2019, 03/22/2018, Additional history exists BREAST CANCER SCREENING 04/22/2022 04/22/20, 04/22/2021, 04/22/2021, Additional history exists COLORECTAL SCREENING 06/24/2022 06/24/2020, 06/24/2020, 06/15/2017, Additional history exists Colorectal Cancer Screening 06/24/2022 DIABETES ANNUAL FOOT EXAM 11/13/20222021, 02/15/2020, 11/28/2019 OSTEOPOROSIS SCREENING 06/09/2023 06/09/2018 INFLUENZA VACCINE (#1) 2025 , 04/03/2021, 04/04/2020, Additional history exists COVID-19 Vaccine (4 - 2024-2 6 season) 2025 04/02/2021, 08/23/2020, 08/01/2020 PNEUMOCOCCAL VACCINE 50+ YEA RS (3 of 3 - PCV20 or PCV21) 04/03/2026 04/03/2021, 03/19/2021, 05/24/2018, Additional history exists Medical Devices Implanted Type Area Skiving Machine Operator Device Identifier Shelf Expiration Date Model / Serial / Lot Band Gastric Lap Std W/Rapidport Ez B-[id number] - [id number] Implanted:Qty: 1 on 06/07/2015 by Matias Mason MD at [facility] Other N/A: Stomach ALLERGAN- MEDICAL 10/15/2016 B-[id number] / [id number] / Screw-Right Leg Lens Procedures Procedure Name Priority Date/Time Associated Diagnosis Comments POC HEMOGLOBIN A1C Routine 08/12/2021 3: 02 PM PERSONAL COACH Type 2 diabetes mellitus without complication, without long-term current use of insulin ([facility]) MAMMO SCREENING BILAT Routine 04/22/2021 LIPID PANEL Routine 04/03/2021 1:43 PM CDT Dyslipidemia Atherosclerosis of both carotid arteries Hypertensive heart and kidney disease with chronic diastolic congestive heart failure and stage 3a chronic kidney disease ([facility]) Chronic heart failure with preserved ejection fraction ([facility]) DIABETES EYE EXAM Routine 02/17/2021 COLONOSCOPY REPORT 06/24/2020 9: 27 AM PERSONAL COACH MICROALBUMIN/CREATIN INE RATIO, RANDOM UR Routine 12/12/2019 10:55 AM CDT Type 2 diabetes mellitus without complication, without long-term current use of insulin ([facility]) XR DEXA BONE DENSITY AXIAL 1 OR MORE SITES Routine 06/09/2018 1:39 PM PERSONAL COACH Menopause from Last 3 Months or Most Recently Relevant to Health Maintenance Results * POC HEMOGLOBIN A1C (08/12/2021 3:02 PM PERSONAL COACH) HGB A1C POC 5.5 <=5.7 % [facility] Blood, whole 08/12/2021 3:02 PM PERSONAL COACH Colt Magallanes MD POINT OF CARE TESTING Stephanie l Result [facility] CLAK# [id number] [address] [place] [address] * MAMMO SCREENING BILAT (04/22/2021) Anatomical Region Laterality Modality Breast Bilateral Mammography us Abstract Provider MAMMO ORDERABLES Edited Result - Final * (ABNORMAL) LIPID PANEL (04/03/2021 1:43 PM CDT) CHOLESTEROL 177 <200 mg/dL [facility] HDL 52 > OR = 50 mg/dL [facility] TRIGLYCERIDE 176(H) <150 mg/dL [facility] LDL CALCULATED 98 mg/dL (calc) [facility] Comment: Reference range: <100 Desirable range <100 mg/dL for primary prevention; <70 mg/dL for patients with CHD or diabetic patients with > or = 2 CHD risk factors. LDL-C is now calculated using the Lisandro calculation, which is a validated novel method providing better accuracy than the Friedewald equation in the estimation of LDL-C. Benito BOLES et al. EFREN. 2013;310(19): 3864-1605 (http://education.[employer].com/faq/TWY639) CHOL/HDL RATIO 3.4 <5.0 (calc) [facility] TOTAL NON-HDL CHOL(LDL+VLDL) 125 <130 mg/dL (calc) [facility] Comment: For patients with diabetes plus 1 major ASCVD risk factor, treating to a non-HDL-C goal of <100 mg/dL (LDL-C of <70 mg/dL) is considered a therapeutic option. Test Performed at: [facility] [address] [place] [address] Aung Chawla D.O., MPH Blood 04/03/2021 1:43 PM CDT 04/03/2021 1:44 PM CDT Hugh Padilla CLINICAL SOCIAL WORK AIDE CHEMISTRY ORDERABLES Stephanie l Result Performing Organization Address City/[facility]/ZIP Co de Phone Number [facility] [address] [place] [address] * DIABETES EYE EXAM (02/17/2021) us Abstract Provider HEALTH MAINTENANCE Edited Resu lt - Final Performing Organization Address City/[facility]/ZIP Co de Phone Number [facility] CLIA# [id number] [address] [place] [address] * COLONOSCOPY REPORT (06/24/2020 9:27 AM PERSONAL COACH) Narrative Procedure Note Michael Mendez MD - 06/24/2020 9:26 AM CST [facility] Endoscopy Patient Name: Renate Olivares Procedure Date: 06/24/2020 Date of : 1950 Admit Type: Outpatient Attending MD: Micahel Mendez MD Procedure: Colonoscopy Indications: High risk colon cancer surveillance: Personal history of colonic polyps Patient Profile: Refer to note in patient chart for documentation of history and physical. Providers: Michael Mendez MD Referring MD: Colt Magallanes MD Medicines: Monitored Anesthesia Care Complications: No immediate complications. Procedure: Pre-Anesthesia Assessment: - Prior to the procedure, a History and Physical was performed, and patient medications, allergies and sensitivities were reviewed. The patient's tolerance of previous anesthesia was reviewed. - The risks and benefits of the procedure and the sedation options and risks were discussed with the patient. All questions were answered and informed consent was obtained. - ASA and MP per anesthesia records. See the other procedure note for documentation of the pre-procedure assessment Informed consent was obtained for the procedure, including moderate sedation after risks were discussed. Based on the pre-procedure assessment, including review of the patient's medical history, medications, allergies, and review of systems, the patient was deemed to be an appropriate candidate for sedation. A timeout was performed. Continuous ECG monitoring, pulse oximetry, blood pressure monitoring, and direct observation were performed. The Colon ([id number]) was introduced through the anus and advanced to the cecum, identified by appendiceal orifice and ileocecal valve. The colonoscopy was performed without difficulty. The patient tolerated the procedure well. The quality of the bowel preparation was good. Estimated Blood Loss: Estimated blood loss: none. Findings: The perianal and digital rectal examinations were normal. A moderate amount of semi-liquid stool was found in the entire colon, interfering with visualization. Lavage of the area was performed using a large amount, resulting in clearance with suboptimal visualization. A tattoo was seen in the sigmoid colon. The tattoo site appeared normal. A few small-mouthed diverticula were found in the sigmoid colon. There was no evidence of diverticular bleeding. A 6 mm polyp was found in the rectum. The polyp was sessile. The polyp was removed with a cold snare. Resection and retrieval were complete. The retroflexed view of the distal rectum and anal verge was normal and showed no anal or rectal abnormalities. Impression: - A tattoo was seen in the sigmoid colon. The tattoo site appeared normal. - Diverticulosis in the sigmoid colon. There was no evidence of diverticular bleeding. - A moderate amount of semi-liquid stool was found in the entire colon, interfering with visualization. Lavage of the area was performed using a large amount, resulting in clearance with suboptimal visualization. - One 6 mm polyp in the rectum, removed with a cold snare. Resected and retrieved. Recommendation: - Await pathology results. - Repeat colonoscopy in 2 years for surveillance based on pathology results. - High fiber diet. - Return to primary care physician as previously scheduled. - The findings and recommendations were discussed with the patient. - Discharge patient to home (with escort). Attending Participation: I personally performed the entire procedure. Michael Mendez MD 06/24/2020 9:25:59 AM This report has been signed electronically. Number of Addenda: 0 [address] [facility] [address], [place] [address] Michael Mendez MD GI PROCEDURE ORDERABLES Final Result * (ABNORMAL) MICROALBUMIN/CREATININE RATIO, RANDOM UR (12/12/2019 10:55 AM CDT) MICROALBUMIN, URINE <1.2 No Reference Range mg/dL 12/12/2019 6:18 PM [facility] CREATININE, URINE 24.2(L) 29.0 - 226.0 mg/dL 12/12/2019 6:18 PM [facility] Comment:Reference Range vari es with fluid intake and diet. Urine URINE SPECIMEN OBTAINED BY CLEAN CATCH PROCEDURE / Unknown Collection / Unknown 12/12/2019 10:55 AM CDT 12/12/2019 6:06 PM CDT [facility] - 12/12/2019 6:18 PM CDT Condition Microalbumin/Creat ratio Normal Males <17 Normal Females <25 Microalbuminuria Males 17-299 Microalbuminuria Females 25-299 Overt proteinuria >=300 Unable to calculate urine microalbumin/creatinine ratio because urine microalbumin result is outside of reportable range. Rosalino Simpson MD URINE ORDERABLES Final Result [facility] # [id number] [address] [place] [id number] * XR DEXA BONE DENSITY AXIAL 1 OR MORE SITES (06/09/2018 1:39 PM PERSONAL COACH) Anatomical Region Laterality Modality Computed Radiogr aphy 06/09/2018 1:39 PM PERSONAL COACH Impressions 06/10/2018 2:02 PM PERSONAL COACH IMPRESSION: 1. T-score of -2.1 in the left femoral neck is considered severely osteopenic according to World Health Organization guidelines. 2. Total bone mineral density of the left hip has increased by 4.1% since 10/04/2012. 3. bone mineral density of the lumbar spine has increased by 6.8% since 10/04/2012 Narrative 06/10/2018 2:02 PM PERSONAL COACH DEXA BONE DENSITOMETRY DATE: 06/09/2018 1:39 PM HISTORY: 67-year-old postmenopausal female. The patient consumes caffeine/alcohol and has a diet low in dairy products. She reports bilateral feet fractures since age 52. COMPARISON: 10/04/2012. FINDINGS: Bone mineral density in the femoral neck, trochanter, and total femur are 0.744 g/sq cm, 0.659 g/sq cm, and 0.861 g/sq cm with respective T-scores of -2.1, -1.2, and -0.8. Total bone mineral density of the left hip has increased by 4.1% since 10/04/2012. Total lumbar spine bone mineral density is 0.950 g/sq cm with a T-score of -1.3. The lowest T-score in the lumbar spine of -1.5 is at L3 and L4. Total bone mineral density of the lumbar spine has increased by 6.8% since 10/04/2012. Procedure Note Colt Bro MD - 06/10/2018 DEXA BONE DENSITOMETRY DATE: 06/09/2018 1:39 PM HISTORY: 67-year-old postmenopausal female. The patient consumes caffeine/alcohol and has a diet low in dairy products. She reports bilateral feet fractures since age 52. COMPARISON: 10/04/2012. FINDINGS: Bone mineral density in the femoral neck, trochanter, and total femur are 0.744 g/sq cm, 0.659 g/sq cm, and 0.861 g/sq cm with respective T-scores of -2.1, -1.2, and -0.8. Total bone mineral density of the left hip has increased by 4.1% since 10/04/2012. Total lumbar spine bone mineral density is 0.950 g/sq cm with a T-score of -1.3. The lowest T-score in the lumbar spine of -1.5 is at L3 and L4. Total bone mineral density of the lumbar spine has increased by 6.8% since 10/04/2012. IMPRESSION: 1. T-score of -2.1 in the left femoral neck is considered severely osteopenic according to World Health Organization guidelines. 2. Total bone mineral density of the left hip has increased by 4.1% since 10/04/2012. 3. bone mineral density of the lumbar spine has increased by 6.8% since 10/04/2012 Rosalino Simpson MD DIAGNOSTIC IMAGING ORDERABLES Final Result from Last 3 Months or Most Recently Relevant to Health Maintenance Insurance MED[place] PART A AND B RX [employer] RX Member Subscriber Plan / Payer (Ef fective 2019-Present) Name:Renate Olivares Relation to Subscriber:Self Name:Renate Olivares Payer ID:Not on file Group ID:[id number] Type:RX Medicare Part D Address: [address] [place], [place] RX [employer]OSS[employer] Medicaid MEDICARE PART A AND B Advance Directives For more information, please contact: [phone] * Full Code (Latest Code Status on File) Date Activated Date Inactivated Comments 06/24/2020 8:15 AM 06/24/2020 12:27 PM * Full Code Date Activated Date Inactivated Comments 02/13/2020 10:45 AM 06/24/2020 7:39 AM * Full Code Date Activated Date Inactivated Comments 01/26/2020 10:16 AM 02/13/2020 10:45 AM * Full Code Date Activated Date Inactivated Comments 06/30/2019 10:01 AM 01/24/2020 11:13 AM * Full Code Date Activated Date Inactivated Comments 06/15/2017 12:34 PM 06/15/2017 5:54 PM
--- NOTE | 2025-04-15 12:02 | ED_ITS ---
HPI - Syncope General Chief Complaint: Syncope Stated Complaint: syncope Time Seen by Provider: 04/15/25 11:29 Source: patient Mode of arrival: ambulatory Limitations: no limitations History of Present Illness HPI narrative: This is a 74-year-old female with history of CHF, COPD who presents to the ED for syncope. Patient states she was here with her in the waiting room when she began to have chest pain and felt a sudden urge to urinate so she went to the bathroom. Rest sitting on the toilet attempt to urinate, she became lightheaded and subsequently syncopized falling forward hitting her right head. She woke up on the floor. Her symptoms have resolved at this point. She does report right forehead pain where she hit her head. Related Data Allergies Allergy/AdvReac Type Severity Reaction Status Date / Time iohexol (From contrast - CT, Allergy Mild Fainting Verified 04/15/25 11:31 X-RAY) oxaprozin (From Daypro) Allergy Rash Verified 04/15/25 11:29 Review of Systems 2 Review of Systems: Gen.: Denies fevers or chills Eyes: Denies eye pain or visual change ENT: Denies congestion Respiratory: Denies shortness of breath or cough CV: As per HPI GI: Denies abdominal pain nausea, emesis or diarrhea denies burning, urgency, frequency or hematuria Musculoskeletal: Denies back pain or muscle pain Neuro: Denies numbness, tingling, weakness or focal weakness Skin: Denies rash Except as documented, all other systems reviewed and negative PMFSH Past Medical History Medical History Atrial fibrillation Hypertension COPD (chronic obstructive pulmonary disease) Surgical History Surgical History History of back surgery H/O neck surgery Exam 2 Narrative: APPEARANCE: No acute distress, nontoxic, resting in bed EYES: EOMI HEENT: Normocephalic, OMM. Small amount of swelling to the right brow with associated tenderness to palpation. RESPIRATORY: No respiratory distress Clear to auscultation bilaterally with no rhonchi wheezing or rales. CARDIOVASCULAR: Regular rate and rhythm without murmurs rubs or gallops. ABDOMINAL: Soft, nontender, nondistended, no rebound or guarding MUSCULOSKELETAl: Moves all extremities. No clubbing, cyanosis or edema. NEURO: Awake and alert. Following commands, speech normal, no focal deficits SKIN:: Warm, dry. No rashes lesions or abrasions PSYCHIATRIC: Normal affect/mood, Course Vital Signs Vital signs: Vital Signs Temperature 97.8 F 04/15/25 11:23 Pulse Rate 87 04/15/25 11:23 Respiratory Rate 17 04/15/25 11:23 Blood Pressure 134/90 04/15/25 11:23 Pulse Oximetry 97 04/15/25 11:23 Oxygen Delivery Room Air 04/15/25 11:23 Temperature 97.8 F 04/15/25 11:23 Pulse Rate 84 04/15/25 14:41 Respiratory Rate 15 04/15/25 14:41 Blood Pressure 128/78 04/15/25 14:41 Pulse Oximetry 98 04/15/25 14:41 Oxygen Delivery Room Air 04/15/25 11:23 MDM - Syncope MDM Narrative Medical decision making narrative: 74-year-old female presenting for syncopal episode. On initial evaluation, patient was in no acute distress, afebrile, hemodynamically stable. She has small contusion to the right brow with no operation. Nonfocal neuro exam. No other injuries. Otherwise asymptomatic at this time. CT head and cervical spine showed no acute fractures or intracranial abnormalities. Cbc and CMP were without significant abnormalities. Troponin negative. UA not consistent with UTI at this time. Chest x-ray showed no acute process. Patient remained asymptomatic throughout her ED course. She was requesting to go home at this and she is appropriate for discharge at this time. She was advised follow-up with her PCP next week was agreeable to this plan. Given strict return precautions. Differential Diagnosis Differential diagnosis: Likely syncope due to orthostatic hypotension, vasovagal syncope, dehydration and other (ACS, contusion, intracranial hemorrhage, arrhythmia, micturition syncope) Medical Records Attestation: I reviewed the patient's medical records. Lab Data Attestation: I reviewed the patient's lab results. 04/15/25 12:47 04/15/25 12:47 Labs: Lab Results 04/15/25 04/15/25 Range/Units 12:47 12:47 WBC 5.8 (4.5-10.0) K/mm3 RBC 4.44 (4.2-5.4) M/mm3 Hgb 13.1 (12.0-15.0) g/dL Hct 40.4 (37.0-47.0) % MCV 91.0 (80-100) fl MCH 29.5 (26-34) pg MCHC 32.4 (32-36) g/dl RDW 12.9 (11.5-14.5) % Plt Count 260 (150-375) k/mm3 MPV 9.2 (7.4-10.4) fl Immature Gran % (Auto) 0.2 (0-0.5) % Neut % (Auto) 73.1 (45.5-73.1) % Lymph % (Auto) 16.9 L (18.3-44.2) % [place] % (Auto) 8.6 H (2.6-8.5) % Eos % (Auto) 0.9 (0-4.4) % Baso % (Auto) 0.3 (0.2-1.2) % Lymph # (Auto) 0.98 (0.9-3.2) K/mm3 [place] # (Auto) 0.5 (0.1-0.6) K/mm3 Eos # (Auto) 0.1 (0-0.3) K/mm3 Baso # (Auto) 0.0 (0.0-0.1) K/mm3 Abs Immat Gran (auto) 0.01 (0.00-0.031) K/mm3 Absolute Neuts (auto) 4.2 (1.3-6.7) K/mm3 Absolute Nucleated RBC 0.000 (0.0-0.012) K/mm3 Nucleated RBC % 0.0 (0.0-0.2) % Sodium 139 (137-145) mmol/L Potassium 4.0 (3.4-5.0) mmol/L Chloride 106 (98-107) mmol/L Carbon Dioxide 28 (22-30) mmol/L Anion Gap 5 (4-12) mmol/L BUN 14 (7-17) mg/dL Creatinine 0.78 (0.7-1.0) mg/dL Estim Creat Clear Calc 47 ml/min Estimated GFR > 60 (59 - ) Glucose 115 H (65-110) mg/dL Calcium 8.8 (8.4-10.2) mg/dL Total Bilirubin 0.2 (0.2-1.3) mg/dL AST 21 (14-36) U/L ALT 20 (6-35) U/L Alkaline Phosphatase 108 (38-126) U/L Troponin I < 0.012 Pending (0.000-0.034) ng/mL Total Protein 6.6 (6.3-8.2) g/dL Albumin 3.8 (3.5-5.1) g/dL Urine Color Yellow (Yellow) Urine Appearance Clear (Clear) Urine pH 7.0 (5.0-9.0) Ur Specific [place] 1.017 (1.001-1.035) Urine Protein Negative (Negative) mg/dL Urine Glucose (UA) Negative (Negative) mg/dL Urine Ketones Trace H (Negative) mg/dL Ur Blood (Man) Negative (Negative) Urine Nitrate Negative (Negative) Urine Bilirubin Negative (Negative) Urine Urobilinogen 1.0 (<2.0) mg/dL Leukocyte Esterase Rfl Trace H (Negative) TAPAN/UL Urine RBC 0-2 (0-2) /hpf Urine WBC 6-10 H (0-3) /hpf Ur Squamous Epith Cells Occasional (Few) /hpf Urine Bacteria None seen /hpf Urine Casts 3-5 Imaging Data Attestation: I personally reviewed and interpreted this imaging study as follows: Radiologist's impression: Impressions Cervical Spine CT 04/15/25 12:18 IMPRESSION: HEAD: 1. No acute intracranial findings. C-SPINE: 1. No acute fracture. Head CT 04/15/25 12:18 IMPRESSION: HEAD: 1. No acute intracranial findings. C-SPINE: 1. No acute fracture. Chest X-Ray 04/15/25 12:26 IMPRESSION: 1. No acute cardiopulmonary findings given portable technique. ECG Data EKG #1: Attestation: I personally reviewed and interpreted this ECG as follows: ECG completion date: 04/15/25 ECG completion time: 11:49 Interpretation: Sinus rhythm rate of 70 1:00 a.m. intervals, no acute ST or T-wave changes Discharge Plan Discharge Clinical Impression: Micturition syncope, Atypical chest pain Patient Disposition: Home Condition: Stable Instructions: Antibiotic Form, Syncope (ED) Additional Instructions: Follow-up with your PCP in the next week for re-evaluation. Return to ED for any new or worsening symptoms. Patient Language: Tamazight Prescriptions: No Action ibuprofen 800 mg tablet 800 mg PO TID PRN (Reason: pain) Qty: 20 0RF benzonatate 200 mg capsule 200 mg PO TID PRN (Reason: cough) Qty: 10 0RF Follow-up/Referrals: Sung Ybarra MD [Primary Care Provider, Hospitalist]
[2025-04-15 12:52] VITALS: BP 115/81; BP 130/64; PULSE 73; PULSE 84
[2025-04-15 12:53] VITALS: BP 146/77; PULSE 90
[2025-04-15 12:55] LABS: Hematocrit 40.4 % (37.0-47.0); Hemoglobin 13.1 g/dL (12.0-15.0); Immature Granulocyte Percent A 0.2 % (0-0.5); Lymphocytes Absolute Auto 0.98 K/mm3 (0.9-3.2); Mean Corpuscular HGB Conc 32.4 g/dl (32-36); Mean Corpuscular Hemoglobin 29.5 pg (26-34); Mean Corpuscular Volume 91.0 fl (80-100); Nucleated Red Blood Cells Absolute Auto 0.000 K/mm3 (0.0-0.012); Nucleated Red Blood Cells Perc 0.0 % (0.0-0.2); Platelet Count Result 260 k/mm3 (150-375); Red Blood Count 4.44 M/mm3 (4.2-5.4); White Blood Count 5.8 K/mm3 (4.5-10.0)
[2025-04-15 13:01] LABS: Add Urine Microscopic? YES; Appearance Urine Clear (Clear); Glucose Urine UA Negative (Negative); Leukocyte Esterase Ur Trace LEU/UL (Negative); Nitrate Urine Negative (Negative); Specific Grav Ur 1.017 (1.001-1.035)
[2025-04-15 13:06] LABS: Alanine Aminotransferase 20 U/L (6-35); Albumin Level 3.8 g/dL (3.5-5.1); Alkaline Phosphatase 108 U/L (38-126); Anion Gap 5 mmol/L (4-12); Aspartate Amino Transferase 21 U/L (14-36); Bilirubin,Total 0.2 mg/dL (0.2-1.3); Blood Urea Nitrogen 14 mg/dL (7-17); Calcium 8.8 mg/dL (8.4-10.2); Carbon Dioxide 28 mmol/L (22-30); Chloride 106 mmol/L (98-107); Estimated CRCL calculation 47 ml/min; Estimated Glomerular Filt Rate > 60; Glucose 115 mg/dL (65-110); Potassium 4.0 mmol/L (3.4-5.0); Sodium 139 mmol/L (137-145); Total Protein 6.6 g/dL (6.3-8.2)
[2025-04-15 13:17] VITALS: BP 128/87; PULSE 80; RESP 16; O2SAT 97
[2025-04-15 13:17] LABS: Troponin I < 0.012 ng/mL (0.000-0.034)
[2025-04-15] MEDS: KETOROLAC 30 MG/ML VIAL (*BKC) IV PUSH (14:22)
[2025-04-15 14:41] VITALS: BP 128/78; PULSE 84; RESP 15; O2SAT 98
== END 2025-04-15 14:41 | disposition home or self-care (01) ==
PROVIDERS: Emergency Provider Student in an Organized Health Care Education/Training Program; PCP Internal Medicine
DX: R55 Syncope and collapse (principal); R07.89 Other chest pain; R82.998 Other abnormal findings in urine; I11.0 Hypertensive heart disease with heart failure; I50.9 Heart failure, unspecified; I48.91 Unspecified atrial fibrillation; J44.9 Chronic obstructive pulmonary disease, unspecified
CPT/HCPCS: 36415; 70450; 71045; 72125; 80053; 81001; 84484; 85025; 87086; 93005; 96374; 99284; J1885